=== PATIENT | female | born 1940 ===

== ENCOUNTER 2017-12-05 07:47 | Inpatient (IN) | payer MEDICARE, OTHER ==
[2017-12-05] MEDS ORDERED: Norepinephrine 8 MG/0.9% NS 250 ML ONE ×2 (08:08→13:18)
[2017-12-05] MEDS ORDERED: Fentanyl 100 MCG/2 ML VIAL ONE (08:13)
[2017-12-05] MEDS ORDERED: Midazolam HCl 2 mg/2 ml Vial ONE ×2 (08:13→08:38)
[2017-12-05 08:31] LABS: Actual Bicarbonate (HCO3a) 17.3 mEq/L (22-28); Analyzer IN Cardio ER; Base Excess (BEa) -13.1 mEq/L (-2.0 to +3.0); Calcium, Ionized 1.08 mmol/L (1.12-1.30); Carboxyhemoglobin (COHb) 0.3 gm% (0.0-3.0); Hemoglobin (Hb) 11.8 g/dL (12.0-16.0); O2 Tension (PaO2) 75.9 mmHg (> 70.0); Potassium - ABG Lab 3.63 mmol/L (3.70-5.30)
[2017-12-05 08:32] LABS: CO2 Tension 61.4 mmHg (35.0-45.0); Puncture Site LRA; pH, Arterial 7.07 (7.35-7.45)
[2017-12-05 08:33] LABS: Peep/CPAP 7.5 cmH2O
[2017-12-05 08:34] LABS: Mean Corpuscular HGB CONC 30.7 g/dL (32.0-36.0); Mean Corpuscular Volume 97.9 fL (78.0-98.0); Mean Platelet Volume 7.3 fL (7.4-10.4); Platelet Count 367 thou/uL (130-400); RBC Distribution Width 13.9 % (11.5-14.5); Red Blood Cell (RBC) Count 4.31 mill/uL (4.20-5.40); White Blood Cell (WBC) Count 33.6 thou/uL (4.8-10.8)
[2017-12-05 08:38] LABS: INR-International Normal Ratio 1.3; Prothrombin Time 16.7 SEC (12.0-14.7)
[2017-12-05 08:39] LABS: ALT (SGPT) 297 U/L (8-55); AST (SGOT) 393 U/L (5-34); Albumin 3.6 g/dL (3.4-4.8); Alkaline Phosphatase 169 U/L (40-150); Anion Gap 22 mmol/L (10-20); BUN (Urea Nitrogen) 22 mg/dL (9.8-20.1); Bilirubin, Total 0.6 mg/dL (0.2-1.2); Calc. Creatinine Clearance 0 mL/min (70-130); Calcium 9.3 mg/dL (7.8-10.44); Carbon Dioxide 20 mmol/L (23-31); Chloride 99 mmol/L (98-107); Estimated GFR-MDRD 50; Globulin 3.3 g/dL (2.4-3.5); Glucose 324 mg/dL (83-110); Lipase 28 U/L (8-78); PTT 39.8 SEC (22.9-36.1); Potassium 3.9 mmol/L (3.5-5.1); Protein, Total 6.9 g/dL (6.0-8.3); Sodium 137 mmol/L (136-145)
[2017-12-05] MEDS ORDERED: Fentanyl 20 mcg/ml (100 ml CADD) IV PRN (08:40)
[2017-12-05 08:51] LABS: Band 24 % (5-11); Lymphocytes 13 % (21-51); MDiff Complete? YES; Monocytes 4 % (0-10); Neutrophil 58 % (42-75)
[2017-12-05 08:54] LABS: Troponin I 2.586 ng/mL (< 0.028)
[2017-12-05] MEDS ORDERED: Sodium Bicarb 50 MEQ/50 ML Abboject 8.4% SYRINGE ONE ×2 (09:00→14:33)
[2017-12-05] MEDS ORDERED: EPINEPHrine 1 MG/10 ML Abboject SYRINGE ONE ×2 (09:00→14:33)
[2017-12-05 09:15] LABS: Actual Bicarbonate (HCO3a) 19.4 mEq/L (22-28); Analyzer IN Cardio ER; Base Excess (BEa) -5.8 mEq/L (-2.0 to +3.0); CO2 Tension 37.2 mmHg (35.0-45.0); Calcium, Ionized 1.05 mmol/L (1.12-1.30); Carboxyhemoglobin (COHb) 0.3 gm% (0.0-3.0); Hemoglobin (Hb) 12.3 g/dL (12.0-16.0); O2 Tension (PaO2) 76.9 mmHg (> 70.0); Potassium - ABG Lab 3.28 mmol/L (3.70-5.30); pH, Arterial 7.34 (7.35-7.45)
[2017-12-05 09:16] LABS: Puncture Site RBA
[2017-12-05] MEDS ORDERED: Enoxaparin Sodium 30 MG/0.3 ML SYRINGE ONE (09:29)
[2017-12-05] MEDS ORDERED: Enoxaparin Sodium 80 MG/0.8 ML SYRINGE ONE (09:29)
[2017-12-05 09:30] LABS: D-Dimer Test Greater than 20.00 *mcg/mL (0.27-0.43)
[2017-12-05] MEDS ORDERED: Piperacillin/Tazobactam 4.5 GM VIAL ONE (09:30)
--- NOTE | 2017-12-05 09:44 | RAD ---
CHEST 1 VIEW: Date: 12/05/17 HISTORY: CPR. COMPARISON: None. FINDINGS: There is a right mainstem intubation with endotracheal tube tip in right mainstem bronchus approximat presley 1.5 cm. Recommend retracting approximately 4.0 cm. Heart size is enlarged. There is perihilar and peripheral interstitial edema. Enteric tube is in place with tip below diaphragm, though out of fiel d of view. IMPRESSION: 1. Right mainstem bronchus intubation. 2. Cardiomegaly with interstitial and alveolar edema. This may be sequelae of cardiogenic edema and a combination of CPR. Dr. Salinas notified of findings via telephone at 0828 hours. CODE CR. POS: [facility]
--- NOTE | 2017-12-05 10:14 | RAD ---
CHEST 1 VIEW: Date: 12/05/17 HISTORY: Post central line placement. COMPARISON: Prior study same date. FINDINGS: The endotracheal tube tip has been retracted approximately 1.0 cm from the saida. A new central veno us catheter is in place with tip at the mid to lower SVC. Moderate edema. No pneumothorax. Enteric tube tip below diaphragm, out of field of view. IMPRESSION: 1. Interval retraction of the endotracheal tube with tip 1.0 cm above the saida. 2. Similar edema. 3. Central venous catheter tip in good position. POS: [facility]
[2017-12-05 10:26] LABS: Bilirubin Negative (Negative); Blood, Urine Negative (Negative); Clarity CLOUDY (Clear); Glucose, Urine (Dipstick) Negative (Negative); Leukocyte Negative (Negative); Nitrite Negative (Negative); Protein, Urine (Dipstick) Negative (Neg-Trace); Urobilinogen 0.2 mg/dL (0.2-1.0)
[2017-12-05] MEDS ORDERED: RENALLY ADJUST ABX IVPB PRN (10:31)
[2017-12-05] MEDS ORDERED: Nitroglycerin 0.4 MG TAB (25 Tab Bottle) SL PRN (10:32)
[2017-12-05] MEDS ORDERED: Bisacodyl 5 MG TAB PO PRN (10:32)
[2017-12-05] MEDS ORDERED: Acetaminophen 650 MG Suppository PR PRN (10:32)
[2017-12-05] MEDS ORDERED: Dextrose 5% in Water 1,000 ML IV PRN (10:38)
[2017-12-05] MEDS ORDERED: Dextrose 50% Abboject 50 ML SYRINGE SLOW IVP PRN (10:38)
--- NOTE | 2017-12-05 11:29 | HP ---
PRIMARY CARE PROVIDER: Dr. Kameron Franklin. CHIEF COMPLAINT: Chest pain. HISTORY OF PRESENT ILLNESS: Ms. Pereira is a pleasant 77-year-old lady who was seen at [facility] following transfer from [facility] in [place]. The patient is currently intubated, but she is awake, able to answer questions by nodding or shaking her head. Collateral history was obtained from review of medical records as well as discussion with the emergency room physician and was confirmed with the patient by asking her questions. She has a history of coronary artery disease and sees Dr. Gray for the same. She has had on and of f chest pressure since yesterday afternoon. She took some nitroglycerin at home, with improvement of the chest pain. I could not get further characterization of chest pain from the patient. She did n ot have any shortness of breath, fevers, sweats, chills, nausea or vomiting. She was concerned about her heart and therefore presented to the emergency room at [place]. She denies any current shortness of breath. She does report pain across her chest. She denies any b ack pain. She has no other complaints. REVIEW OF SYSTEMS: All other systems were reviewed and found to be negative. PAST MEDICAL HISTORY: Significant for congestive heart failure, anemia, arthritis, coronary artery d isease, celiac sprue, diabetes mellitus, hypertension, Guillain-[place] syndrome, dyslipidemia, lumbar radiculopathy, morbid obesity. PAST SURGICAL HISTORY: Significant for section, colonoscopy, and hysterectomy. FAMILY HISTORY: Significant for brain cancer in her father. SOCIAL HISTORY: The patient denies tobacco use, alcohol use or recreational drug use. ALLERGIES: No known drug allergies. CURRENT MEDICATIONS: Include alpha lipoic acid 300 mg daily, aspirin 325 mg daily, Lipitor 80 mg eric ly, biotin 2500 mcg daily, bumetanide 2 mg daily, calcium carbonate/vitamin D2 500/200 one tablet 2 t imes a day, celecoxib 200 mg daily, cinnamon bark 500 mg capsule daily, Plavix 75 mg daily, Coenzyme Q10 30 mg daily, cranberry/ascorbic acid 1 tablet 3 times a day, vitamin B12 500 mcg daily, fish oil 1 capsule 2 times a day, ezetimibe 10 mg daily, fluoxetine 20 mg every other day, lisinopril 2.5 mg d aily, Lopressor 25 mg 2 times a day, multivitamins 1 tablet daily, Nitro spray p.r.n., Nystatin topic ally 2 times a day, fish oil/omega 3 fatty acids 2 grams daily, timolol eyedrops, and tramadol p.r.n. PHYSICAL EXAMINATION: GENERAL: Ms. Pereira is awake and alert, not in acute distress. She is obese. VITAL SIGNS: Blood pressure is 93/50, pulse 80, respiratory rate 20, and oxygen saturation 97% on ve ntilator. Temperature is 99.1 degrees Fahrenheit. EYES: No scleral icterus. No conjunctival pallor. ENT: Endotracheal tube present. NECK: Nontender, trachea is midline, no lymphadenopathy. RESPIRATORY: Accessory muscles of breathing are not active. Chest wall movements are symmetric bila terally. Lungs are clear to auscultation without wheeze, rhonchi or crepitations. CARDIOVASCULAR: S1 and S2 are heard, regular. Peripheral pulses palpable. No carotid bruit, no per icardial rub. She has a central line. ABDOMEN: Soft, nontender, bowel sounds are heard, no hepatomegaly, no splenomegaly. NEUROLOGIC: Full neurologic examination was not possible, because of patient's intubated status. Th ere is no facial droop. Pupils are equal and reactive to light. She is able to move all 4 extremiti es. Deep tendon reflexes are 2+, plantar reflexes downgoing bilaterally. MUSCULOSKELETAL: Power is 5/5 in all 4 extremities. LYMPHATIC: No cervical lymphadenopathy. SKIN: No rashes or subcutaneous nodules. PSYCHIATRIC: Normal mood, normal affect, patient appears to be oriented to person, unable to assess orientation to place or time. LABORATORY DATA AND IMAGING: Ms. Pereira's labs and investigations were reviewed. I reviewed he r chest x-ray, which does not show any pulmonary infiltrates. I also reviewed her electrocardiogram, which shows normal sinus rhythm, no ST changes to suggest an acute coronary syndrome. She has leuko cytosis with 33,600 white cells, of which 58% are neutrophils and 24% are band neutrophils, normal he moglobin, normal platelet count, INR 1.3, D-dimer greater than 20, arterial blood gases showing pH 7. 07, pCO2 61.4 and pO2 75.9, normal sodium, normal potassium, decreased carbon dioxide of 20, elevated lactic acid level of 10.5, normal total bilirubin, elevated AST of 393, elevated ALT of 297, elevate d alkaline phosphatase of 169, elevated troponin I of 2.586, elevated BNP of 712 and normal lipase. ASSESSMENT AND PLAN: Ms. Pereira is a pleasant 77-year-old lady who was seen at [facility] on 12/05/2017. She initially presented to [facility] emergency room at [facility] complaining of chest pain. There, she was diagnosed with non-ST elevation myocardial infarction. She was subsequently transferred to the emergency room at [place]. On the way to [facility], she reportedly became asystolic and had to have CPR performed for 10 minutes with return of spontaneous circulation. She became hypoxic after reaching the emergency room at [facility]. She was also hypotensive. She is receiving vasopressors and is currently intubated. Her problem list includes: 1. Non-ST elevation myocardial infarction: She has received a dose of Lovenox, which I will continu e. I will also continue her aspirin, Plavix, beta [place] and JOSEF inhibitor. I will consult Cardiol ogy Service for opinion and help with further management. 2. Acute hypercapnic respiratory failure: The patient is currently intubated and mechanically venti lated. She will be admitted to CCU for further management. Pulmonology Service is being consulted f or opinion and help with further management. 3. Leukocytosis: Etiology is unclear. We will check urine studies to rule out any urinary tract in fection. Given abnormal LFTs, biliary infection is a possibility as well. We will start her on broa d spectrum antibiotics and await cultures. 4. Abnormal liver function tests: We will check abdominal ultrasound. We will recheck her LFTs as well. 5. Diabetes mellitus type 2: We will start the patient on Accu-Cheks and insulin sliding scale. 6. Hypertension: The patient is actually hypotensive currently, receiving Levophed infusion to main tain her blood pressure. 7. Dyslipidemia: We will continue her statin. Many thanks for allowing me to participate in the patient's care. Please feel free to contact me wit h any questions or concerns.
[2017-12-05 11:46] VITALS: BMI 43.8
--- NOTE | 2017-12-05 11:46 | CON ---
DATE OF CONSULTATION: 12/05/2017 REASON FOR CONSULTATION: Cardiac arrest. HISTORY OF PRESENT ILLNESS: Ms. Melida Pereira is a 77-year-old woman. She has a history of sev ere coronary artery disease which was felt to be an inoperable many years ago. She has been treated medically for several years and has been able to have her symptoms controlled. The patient came to [facility] emergency room at [facility] having chest pain. The decision was made to transfer her here. En route, the patient had a cardiac arrest. The patient has undergone CPR, is now intubated and on the ventilator. The patient has been sedated, but is not responsive currently. Past medical history; she did undergo cardiac catheterization in 2010 in March. She was found to h ave severe 3-vessel coronary disease with calcification. Ejection fraction was 40%. Surgery saw the patient and at that time thought to be a prohibitive risk for surgery, especially in view of her obe sity and inactivity. Unfortunately, her activity levels have not improved over the last nearly 8 yea rs. She is predominantly in a scooter. The patient has been having some symptoms of chest pain and went to the emergency room as outlined above today and was transferred here as mentioned. PAST MEDICAL HISTORY: 1. Coronary artery disease, inoperable. 2. Severe morbid obesity. 3. Limited mobility related to morbid obesity, primarily as well as some pain in her joints. 4. History of hypertension. 5. History of some congestive heart failure with ejection fraction of 35%. MEDICATIONS: 1. Aspirin. 2. Lisinopril. 3. Lipitor 80 mg a day. 4. Lisinopril 2.5 mg a day. 5. Bumex. 6. Plavix 75 mg a day. ALLERGIES: None known. SOCIAL HISTORY: She has an extremely supportive who was helping her in the office visits paul ry time that I can recall. SOCIAL HISTORY: No tobacco that I know of. No alcohol. PHYSICAL EXAMINATION: GENERAL: This is currently unresponsive, elderly woman, very obese. She is intubated on the ventila tor. VITAL SIGNS: Her blood pressure is just over 100 systolic, but she is on intravenous pressors. HEENT: Her eyes are closed. NECK: Neck veins are difficult to assess due to her obesity. LUNGS: Clear anteriorly and laterally. CARDIAC: Normal S1, normal S2. There is no murmur, rub or gallop, but heart sounds are very distant due to obesity. ABDOMEN: Obese, nontender, no hepatosplenomegaly. EXTREMITIES: Warm, dry, no clubbing, cyanosis or edema. I do not feel pedal pulses. PERTINENT LABORATORY AND X-RAY FINDINGS: The arterial blood gas; initially there was a pH of 7.07 fo llowed by 7.34, pCO2 was 61.4. Most recent pO2 76.9. The creatinine is 1.07. Troponin 2.586. EKG initially showed nonspecific intraventricular conduction delay, but now she has a left bundle bra nch block. Most recent LDL cholesterol was 68 here at this institution. HDL 50. Chest x-ray shows pulmonary edema. The initial chest x-ray showed the ET tube in the right main stem bronchus, there is calcification of the aorta at the aortic arch. ASSESSMENT: 1. Severe inoperable 3-vessel coronary disease. 2. Non-ST elevation myocardial infarction which has progressed to left bundle branch block. 3. Morbid obesity. 4. Pulmonary edema. PLAN: 1. She will receive a dose of enoxaparin. 2. She is intubated on ventilator. 3. The nurse tells me that she strongly said she did not want any other interventions done. She did not want bypass surgery done, although actually she had been turned down for bypass previously. The prognosis appears poor. I agree with intravenous pressors. Need to clarify code status with the brian minaya and it would seem reasonable to not make the patient a full code if she does not have a proble m that could be fixed operatively. I will be glad to follow with you. No indication to go to the ammunition assembly i laborer urgently, as mentioned she hunter s inoperable coronary disease which is calcified. Amazingly, the patient has been able to survive [facility] incident up until recently with her severe coronary artery disease. Prognosis at this point; h owever, looks very poor. We will follow with you.
[2017-12-05 12:07] LABS: Troponin I 18.079 ng/mL (< 0.028)
[2017-12-05] MEDS: Sodium Bicarbonate 150 MEQ in Dextrose 5% in Water 1,000 ML IV SCH ×2 (12:32→20:36)
[2017-12-05 13:36] LABS: Lactic Acid 3.3 mmol/L (0.5-2.2)
[2017-12-05] MEDS ORDERED: Vancomycin HCl 1 GM in Premix Bag 1 BAG IVPB SCH (14:00)
[2017-12-05] MEDS ORDERED: DC Sedation Protocol FS ONE (14:42)
[2017-12-05 15:24] LABS: Troponin I 39.458 ng/mL (< 0.028)
[2017-12-05] MEDS ORDERED: Furosemide 20 MG/2 ML VIAL SLOW IVP SCH (15:30)
--- NOTE | 2017-12-05 16:15 | ULT ---
RIGHT UPPER QUADRANT ULTRASOUND: 12/05/17 INDICATION: Abnormal LFTs. FINDINGS: There is a large stone within the gallbladder with gallbladder wall thickening and pericholecystic fl uid but no report of a sonographic Garza's sign. Common bile duct is upper limits of normal measurin g 5.8 mm. The visualized pancreas is unremarkable. No focal hepatic lesion is evident. The right kidn ey measured 9.7 cm in length. IMPRESSION: Cholelithiasis with gallbladder wall thickening and pericholecystic fluid is highly suspicious for ac phoebe calculus cholecystitis. There is no report of sonographic Garza's sign. If findings on clinical exam are equivocal, HIDA scan may be helpful to evaluate for cystic duct obstruction. POS: [facility]
[2017-12-05] MEDS: HumaLOG 300 UNITS/3 ML VIAL SC PRN ×2 (17:01→20:53)
[2017-12-05] MEDS: Piperacillin/Tazobactam 4.5 GM in Sodium Chloride 0.9% 100 ML IVPB SCH (17:05)
[2017-12-05] MEDS: Norepinephrine 8 MG/250 ML BAG IVPB PRN ×2 (18:19→23:03)
[2017-12-05] MEDS ORDERED: Enoxaparin Sodium 120 MG/0.8 ML SYRINGE SC SCH (21:00)
[2017-12-05] MEDS ORDERED: Atorvastatin Calcium 40 MG TAB PO SCH ×2 (21:00)
[2017-12-05] MEDS ORDERED: Metoprolol Tartrate 25 MG TAB PO SCH (21:00)
[2017-12-06] MEDS: Piperacillin/Tazobactam 4.5 GM in Sodium Chloride 0.9% 100 ML IVPB SCH ×3 (01:21→19:14)
[2017-12-06] MEDS: Norepinephrine 8 MG/250 ML BAG IVPB PRN ×3 (03:10→13:04)
[2017-12-06 04:27] LABS: #Basophils 0.1 thou/uL (0.0-0.2); #Lymphocytes 2.4 thou/uL (1.20-3.40); #Monocytes 1.6 thou/uL (0.11-0.59); %Basophils 0.4 % (0.0-1.0); %Eosinophils 0.1 % (0.0-10.0); %Lymphocytes 14.9 % (21.0-51.0); %Neutrophils 74.7 % (42.0-75.0); Hemoglobin 11.8 g/dL (12.0-16.0); Mean Corpuscular Hemoglobin 30.4 pg (27.0-31.0); Mean Platelet Volume 7.2 fL (7.4-10.4); Platelet Count 310 thou/uL (130-400); RBC Distribution Width 14.1 % (11.5-14.5); Red Blood Cell (RBC) Count 3.87 mill/uL (4.20-5.40)
[2017-12-06 04:36] LABS: ALT (SGPT) 223 U/L (8-55); AST (SGOT) 246 U/L (5-34); Albumin 3.2 g/dL (3.4-4.8); Alkaline Phosphatase 101 U/L (40-150); Anion Gap 14 mmol/L (10-20); BUN (Urea Nitrogen) 21 mg/dL (9.8-20.1); Bilirubin, Total 0.7 mg/dL (0.2-1.2); Calc. Creatinine Clearance 95 mL/min (70-130); Calcium 8.3 mg/dL (7.8-10.44); Carbon Dioxide 31 mmol/L (23-31); Cardiac Risk 2.9 (Less than 4.5); Chloride 99 mmol/L (98-107); Cholesterol 106 mg/dl (< 200 Desired); Estimated GFR-MDRD 61; Globulin 2.5 g/dL (2.4-3.5); Glucose 244 mg/dL (83-110); HDL Cholesterol 37 mg/dL (>60 Neg Risk); LDL Cholesterol, Calculated 46 mg/dL; Protein, Total 5.7 g/dL (6.0-8.3); Sodium 141 mmol/L (136-145); Triglycerides 116 mg/dL (Less than 150)
[2017-12-06] MEDS: HumaLOG 300 UNITS/3 ML VIAL SC PRN ×2 (05:55→13:16)
--- NOTE | 2017-12-06 08:36 | CON ---
DATE OF CONSULTATION: 12/05/2017 HISTORY OF PRESENT ILLNESS: Melida Pereira is a 77-year-old female, who was transferred from [facility] with ongoing chest pain and shortness of breath. Apparently, on the way to the hospital, she became apparently had some kind of a cardiac arrest appar ently for 10 minutes. Heart rate was brought back bradycardia asystole. She was not ventilated. Ap parently when she came to the ER, the ER physician said that CPR in progress. Because her sats were low, x-ray showed congestive heart failure. Patient was intubated because of low hypoxemia. Now in the ICU, she is awake, alert, responsive. She wants endotracheal tube out. Sedation was withheld. She is nonsmoker, no alcohol abuse. She sees a Dr. Franklin in [place]. PAST MEDICAL HISTORY: Coronary artery disease. She is not a candidate for any surgery because of ex tensive atherosclerosis. CHF, arthritis, diabetes, hypertension, history of previous Guillain-[place], obesity. She normally seeks care at [facility]. In fact, she was in [place] not longer for 3 days. PAST SURGICAL HISTORY: . MEDICATIONS: From home includes several different eyedrops, metoprolol 25 mg b.i.d., Zestril 2.5, Pr ozac 20, Zetia 10, Plavix 75, Bumex 2 mg, Celebrex 200, Lipitor 80, aspirin. ALLERGIES: IODINE. PHYSICAL EXAMINATION: GENERAL: She is awake, alert, responsive. VITAL SIGNS: Pulse is 87, blood pressure is 130/80, respiration rate 18, and sats are 99%. CHEST: Decreased breath sounds, bilateral crackles. CARDIAC: Normal S1 and S2. No gallops. ABDOMEN: Soft. No masses. LABORATORY DATA: PO2 of 76, pCO2 of 37, pH 7.34 on the vent. Troponin is elevated at 18. X-ray fernanda ws CHF. Her white count is 32,000. IMPRESSION: 1. Respiratory failure, status post presumed cardiac arrest. 2. Chronic disease, not a candidate for surgical intervention. 3. Obesity. 4. Diabetes. She is on broad spectrum antibiotics which I will continue. I doubt this is pneumonia, it appears to be CHF, probably stress related leukocytosis, though she does have some bandemia. Renal function is normal. Lactic acid was 10 and is now 3.3, probably from hyperperfusion, BNP 712. PLAN: Stop sedation, wean and extubate as tolerated. Continue aggressive cardiac care. Diuretics, etc. We will follow. Forty-five minutes critical care time.
--- NOTE | 2017-12-06 08:42 | RAD ---
CHEST 1 VIEW: HISTORY: Dyspnea. Followup. COMPARISON: 12/05/17. FINDINGS: Cardiac silhouette is magnified and enlarged. Pulmonary vasculature remains engorged with patchy are as of parenchymal infiltrate similar in appearance to the prior exam allowing for differences in radi ographic technique. Mediastinum is midline with aortic calcification. Endotracheal catheter and marleny ogastric tube no longer visible. Right subclavian central venous catheter remains in place. Old rig ht rib fractures. IMPRESSION: 1. Interval removal of the endotracheal catheter and nasogastric tube. 2. Pulmonary vascular congestion and other findings are otherwise stable. POS: [facility]
[2017-12-06] MEDS ORDERED: Enoxaparin Sodium 120 MG/0.8 ML SYRINGE SC SCH (08:44)
[2017-12-06] MEDS ORDERED: Potassium Chloride 40 MEQ in Premix Bag 1 BAG IVPB SCH (08:45)
[2017-12-06] MEDS ORDERED: Aspirin 300 MG Suppository PR SCH (09:00)
[2017-12-06] MEDS ORDERED: Lisinopril 2.5 MG TAB PO SCH (09:00)
--- NOTE | 2017-12-06 09:11 | PRG ---
DATE OF SERVICE: 12/06/2017 Ms. Pereira is extubated, awake and alert, feels much better today. She is still on high dose intravenous pressors. PHYSICAL EXAMINATION: VITAL SIGNS: Her blood pressure is in the 90s systolic. GENERAL: She is awake and alert. LUNGS: Clear. CARDIAC: Normal S1, normal S2, but there are very distant heart sounds due to obesity. ABDOMEN: Very obese, nontender to light palpation. EXTREMITIES: Warm and dry. PERTINENT LABORATORY: Her troponin peak was 39.458, the QRS on EKG no longer looks wide. ASSESSMENT: 1. Status post [id number] myocardial infarction. 2. Ultrasound of the gallbladder reveals that she likely has cholecystitis. She does have gallstone . 3. Non-ST elevation infarction, demand ischemia with severe underlying coronary disease. 4. Hypotension. PLAN: 1. Continue pressors. 2. We will have to hold JOSEF inhibitors and beta blockers presently. 3. Reduce enoxaparin dose for DVT prophylaxis dose. 4. Hypokalemia, replete potassium. Potassium was 3. 5. Echocardiogram. 6. Prognosis remains guarded. Continue antibiotics for now. At some point, surgical consultation w ould be appropriate, although currently likely too ill to proceed to surgery today.
[2017-12-06] MEDS: Aspirin 81 mg Enteric Coated Tablet PO SCH (09:29)
[2017-12-06] MEDS: Clopidogrel Bisulfate 75 MG TAB PO SCH (09:30)
[2017-12-06] MEDS: Enoxaparin Sodium 40 MG/0.4 ML SYRINGE SC SCH ×2 (09:31→20:53)
--- NOTE | 2017-12-06 09:39 | PRG ---
DATE OF SERVICE: 12/06/2017 The patient remains in the ICU, though she is much better, awake, alert, responsive. PHYSICAL EXAMINATION: VITAL SIGNS: Pulse is 90, blood pressure 94/42. She is on Levophed. Sats 90%, respiration 21. I's & O's have been 3210 in, 1268 out. Denied any pain or discomfort. CHEST: Chest reveals decreased breath sounds, minimal crackles. CARDIAC: Normal S1, S2. ABDOMEN: Soft, no masses. LABORATORY: Potassium is 3. Glucose 244. White count 15,000. Troponin was markedly elevated. IMPRESSION: 1. Status post myocardial infarction. 2. Status post cardiac arrest. 3. Abnormal liver function consistent with acute gallbladder disease. PLAN: No reason to suspect sepsis. I have discontinued the vancomycin. Continue Zosyn for presumed acute gallbladder infection status. ____ on board. PT and nutrition. I will follow. One-half hour critical care time.
[2017-12-06] MEDS: Sodium Bicarbonate 150 MEQ in Dextrose 5% in Water 1,000 ML IV SCH (09:50)
[2017-12-06] MEDS ORDERED: Sodium Chloride 0.9% 1,000 ML IV SCH (11:15)
[2017-12-06] MEDS: Sodium Chloride 0.9% 1,000 ML IV SCH ×2 (16:30→21:02)
--- NOTE | 2017-12-06 18:45 | PDOC.PN ---
- Subjective Encounter Start Date: 12/06/17 Encounter Start Time: 10:00 Pt seen for followup re: NSTEMI. Denies chest pain, abdo pain. Feels better. - Objective MAR Reviewed: Yes Vital Signs & Weight: Vital Signs (12 hours) Temp Pulse Pulse BP BP Pulse Ox Pulse Ox 12/06/17 16:00 98.5 F 12/06/17 12:22 99 108 H 112/69 87/55 L 97 12/06/17 12:00 98.4 F 12/06/17 08:00 99.5 F 83 L Pulse Ox 12/06/17 16:00 12/06/17 12:22 97 12/06/17 12:00 12/06/17 08:00 Weight Weight 255 lb 2.961 oz Most Recent Monitor Data Heart Rate from ECG 97 NIBP 118/66 NIBP BP-Mean 83 Respiration from ECG 29 SpO2 94 I&O: 12/05/17 12/06/17 12/07/17 06:59 06:59 06:59 Intake Total 3210 682 Output Total 1260 360 Balance 1950 322 Result Diagrams: 12/07/17 04:20 12/07/17 04:20 Additional Labs: Accuchecks 12/06/17 12/05/17 13:13 20:51 POC Glucose 178 H 257 H EKG Reviewed by me: Yes (Tele: NSR) Phys Exam - Physical Examination Morbid obesity HEENT: moist MMs, sclera anicteric, oral pharynx no lesions, 2+ tonsils Neck: no nodes, no JVD, supple, full ROM Respiratory: no wheezing, no rales, no rhonchi, clear to auscultation bilateral Cardiovascular: RRR, no rub S1, S2 Gastrointestinal: soft, non-tender, no distention, positive bowel sounds Neurological: moves all 4 limbs Psychiatric: normal affect, A&O x 3 Dx/Plan (1) NSTEMI (non-ST elevated myocardial infarction) Code(s): I21.4 - NON-ST ELEVATION (NSTEMI) MYOCARDIAL INFARCTION Status: Acute Comment: continue Lovenox. Pt was extubated yesterday, still on pressors. (2) Cholecystitis Code(s): K81.9 - CHOLECYSTITIS, UNSPECIFIED Status: Acute Comment: suspected , based on abdo US. Clinically, Garza's sign is negative. Will continue IV Zosyn and seek help from surgical service. (3) DM2 (diabetes mellitus, type 2) Status: Chronic Comment: continue accuchecks and insulin sliding scale. (4) HTN (hypertension) Code(s): I10 - ESSENTIAL (PRIMARY) HYPERTENSION Status: Chronic Comment: Pt on pressors for hypotension. (5) Dyslipidemia Code(s): E78.5 - HYPERLIPIDEMIA, UNSPECIFIED Status: Chronic Comment: continue statin - Plan * . Review of Systems - Review of Systems Constitutional: negative: fever, chills, sweats, weakness, malaise Respiratory: negative: Cough, Shortness of Breath, SOB with Excertion, Pleuritic Pain, Wheezing Cardiovascular: negative: chest pain, palpitations, orthopnea, paroxysmal nocturnal dyspnea, edema, light headedness Gastrointestinal: negative: Nausea, Vomiting, Abdominal Pain, Diarrhea, Constipation, Melena, Hematochezia Genitourinary: negative: Dysuria, Frequency, Incontinence, Hematuria, Retention Skin: negative: Rash, Lesions, Jeremiah, Bruising - Medications/Allergies Allergies/Adverse Reactions: Allergies Allergy/AdvReac Type Severity Reaction Status Date / Time Iodinated Contrast- Oral and Allergy Verified 12/05/17 11:20 IV Dye Medications: Current Medications Acetaminophen (Tylenol) 650 mg PO Q4H PRN PRN Reason: Headache/Fever/Mild Pain (1-3) Acetaminophen (Tylenol) 650 mg LA Q4H PRN PRN Reason: Headache/Fever/Mild Pain (1-3) Aspirin (Ecotrin) 81 mg PO DAILY [facility] Last Admin: 12/06/17 09:29 Dose: 81 mg Bisacodyl (Dulcolax) 10 mg PO DAILYPRN PRN PRN Reason: Constipation Clopidogrel Bisulfate (Plavix) 75 mg PO DAILY [facility] Last Admin: 12/06/17 09:30 Dose: 75 mg Dextrose/Water (Dextrose 50%) 25 gm SLOW IVP PRN PRN PRN Reason: Hypoglycemia Enoxaparin Sodium (Lovenox) 40 mg SC 0900,2100 [facility] Last Admin: 12/06/17 09:31 Dose: 40 mg Glucagon (Glucagon) 1 mg IM PRN PRN PRN Reason: Hypoglycemia Piperacillin Sod/Tazobactam (Sod 4.5 gm/ Sodium Chloride) 100 mls @ 200 mls/hr IVPB 0100,0900,1700 [facility] Last Admin: 12/06/17 09:13 Dose: 100 mls Dextrose/Water (D5w) 1,000 mls @ 0 mls/hr IV .Q0M PRN PRN Reason: Hypoglycemia Norepinephrine Bitartrate (Levophed) 250 mls @ 0 mls/hr IVPB INF PRN; Protocol PRN Reason: Blood Pressure Last Admin: 12/06/17 13:04 Dose: 250 mls Sodium Chloride (Normal Saline 0.9%) 1,000 mls @ 80 mls/hr IV .[id number] [facility] Insulin Human Lispro (Humalog) 0 units SC .MILD SLIDING SCALE PRN PRN Reason: Mild Correctional Scale Last Admin: 12/06/17 13:16 Dose: 2 unit Miscellaneous Medication (Pharmacy To Dose) 1 each IVPB PRN PRN PRN Reason: Pharmacy to dose Morphine Sulfate (Morphine) 2 mg SLOW IVP Q5MIN PRN PRN Reason: Chest Pain Nitroglycerin (Nitrostat) 0.4 mg SL Q5MIN PRN PRN Reason: Chest Pain Potassium Bicarb/Potassium Chloride (K-Lyte Cl) 25 meq PO BID [facility] Stop: 12/09/17 21:01
[2017-12-06] MEDS ORDERED: Pot Chloride/Pot Bicarb/Cit Ac 25 mEq Effervescent Tablet PO SCH (21:00)
--- NOTE | 2017-12-06 21:33 | CON ---
DATE OF CONSULTATION: 12/06/2017 CONSULTING PHYSICIAN: Dr. Franco. REASON FOR CONSULTATION: Cholelithiasis, possible cholecystitis. HISTORY OF PRESENT ILLNESS: The patient is a 77-year-old morbidly obese white female who was admitte d to the hospital yesterday following a cardiac arrest. She was intubated at the time of admission, but she is extubated currently. At the time that she was admitted, her initial testing revealed elev ated liver function tests. Her AST was elevated at 393 and today it is 246. Her ALT was elevated at 297 and today it is 223. She tells me that she has known for a number of years that she had cholelithiasis. She can be certai n when she learned or how she learned. She is also not certain why she never had her cholelithiasis addressed with surgery. She tells me that she never has any significant right upper quadrant discomf ort. She denies any currently. She is alert and very appropriate and interactive right now. Her gallbladder ultrasound was obtained did reveal potentially some pericholecystic fluid. There is some gallbladder wall thickening. Her cystic duct had a normal caliber at 5.8 mm. Her white blood c ell count when she was admitted yesterday was 33 and today it is 16. PAST MEDICAL HISTORY: 1. Notable for inoperable severe coronary artery disease. She was felt to be high risk for surgery and accordingly catheterization was not performed either. 2. Severe morbid obesity. 3. Limited mobility. 4. Hypertension. 5. Congestive heart failure with ejection fraction of 35%. CURRENT MEDICATIONS: Aspirin, lisinopril, Lipitor, Bumex and Plavix. ALLERGIES: No known drug allergies. PERSONAL AND SOCIAL HISTORY: She is . She denies tobacco use or alcohol use. PHYSICAL EXAMINATION: VITAL SIGNS: She is currently tachycardic with a heart rate between 100-105, blood pressure is withi n normal limits. She is currently on Levophed, but has been weaned. HEENT: Unremarkable. NECK: Supple. LUNGS: Clear to auscultation. CARDIAC: Regular rate and rhythm. ABDOMEN: Morbidly obese, but soft. There is no focal tenderness in any area in her abdomen. EXTREMITIES: Unremarkable. LABORATORY: As mentioned, her white blood cell count has dropped from 33 down to 16. Her hemoglobin is currently 11.8. Her chemistry profile reveals normal bilirubin, normal alkaline phosphatase and her AST and ALT are trending downwards. Her troponin yesterday afternoon was 39.5. ASSESSMENT: Patient with cholelithiasis. It is entirely possible that her elevated transaminases ar e related to congestive heart failure or to that compressions that she sustained during her cardiac a rrest. I doubt she has cholecystitis and suspected there is a fluid around her gallbladder is relate d to her heart failure instead. She is a prohibitive risk for surgery and her gallbladder should not be addressed unless it becomes an emergent problem, which it certainly was not. I discussed all thi s with the patient. I discussed with her symptoms that she would experience if she had significant c holecystitis. As I do not recommend any intervention, I will see her in the future as needed.
[2017-12-07] MEDS: Piperacillin/Tazobactam 4.5 GM in Sodium Chloride 0.9% 100 ML IVPB SCH ×2 (00:19→08:42)
[2017-12-07 04:35] LABS: #Lymphocytes 1.3 thou/uL (1.20-3.40); #Monocytes 0.7 thou/uL (0.11-0.59); #Neutrophils 5.8 thou/uL (1.40-6.50); %Basophils 0.4 % (0.0-1.0); %Eosinophils 0.3 % (0.0-10.0); %Lymphocytes 16.7 % (21.0-51.0); %Monocytes 8.7 % (0.0-10.0); %Neutrophils 73.9 % (42.0-75.0); Hemoglobin 9.9 g/dL (12.0-16.0); Mean Corpuscular HGB CONC 31.5 g/dL (32.0-36.0); Mean Corpuscular Hemoglobin 30.2 pg (27.0-31.0); Mean Corpuscular Volume 95.9 fL (78.0-98.0); Mean Platelet Volume 7.2 fL (7.4-10.4); Platelet Count 154 thou/uL (130-400); RBC Distribution Width 13.9 % (11.5-14.5); Red Blood Cell (RBC) Count 3.29 mill/uL (4.20-5.40); White Blood Cell (WBC) Count 7.8 thou/uL (4.8-10.8)
[2017-12-07 04:45] LABS: ALT (SGPT) 128 U/L (8-55); AST (SGOT) 113 U/L (5-34); Albumin 2.8 g/dL (3.4-4.8); Alkaline Phosphatase 82 U/L (40-150); Anion Gap 12 mmol/L (10-20); BUN (Urea Nitrogen) 15 mg/dL (9.8-20.1); Bilirubin, Total 0.9 mg/dL (0.2-1.2); Calc. Creatinine Clearance 111 mL/min (70-130); Calcium 8.2 mg/dL (7.8-10.44); Carbon Dioxide 33 mmol/L (23-31); Chloride 103 mmol/L (98-107); Estimated GFR-MDRD 74; Globulin 2.4 g/dL (2.4-3.5); Glucose 157 mg/dL (83-110); Potassium 3.3 mmol/L (3.5-5.1); Protein, Total 5.2 g/dL (6.0-8.3); Sodium 145 mmol/L (136-145)
[2017-12-07] MEDS ORDERED: Pot Chloride/Pot Bicarb/Cit Ac 25 mEq Effervescent Tablet PO SCH (08:25)
--- NOTE | 2017-12-07 08:38 | RAD ---
PORTABLE AP CHEST XRAY: DATE: 12/07/2017. History On a ventilator, followup evaluation. COMPARISON: . FINDINGS: Right subclavian central venous catheter is stable in position. Cardiac silhouette is enlarged. Pul monary vasculature does appear mildly increased. There is mild increase in perihilar interstitial de nsities. The linear parenchymal opacity at the right lung base does appear mildly improved. Althoug h the patient is rotated, there is blunting of the right lateral costophrenic angle which could be re lated to either atelectasis or small right pleural effusion. No other interval change. IMPRESSION: 1. Cardiomegaly. 2. Increased perihilar interstitial opacities which could be related to either an element of pulmona ry edema or infectious process. 3. Improvement in aeration at the right lung base, but there is now blunting of the right lateral co stophrenic angle, some of which is related to patient rotation and atelectasis, but a small right ple ural effusion is a possibility. POS: [facility]
[2017-12-07] MEDS: Clopidogrel Bisulfate 75 MG TAB PO SCH (08:43)
[2017-12-07] MEDS: Aspirin 81 mg Enteric Coated Tablet PO SCH (08:43)
--- NOTE | 2017-12-07 08:51 | PRG ---
DATE OF SERVICE: 12/07/2017 SUBJECTIVE: Ms. Pereira is more alert and awake today. PHYSICAL EXAMINATION: VITAL SIGNS: Her blood pressure 119/65 and pulse is 100 and sinus. LUNGS: Clear. CARDIAC: Normal S1 and normal S2. ABDOMEN: Soft, nontender. EXTREMITIES: There is no edema. ASSESSMENT: 1. Severe inoperable 3-vessel coronary artery disease. 2. Morbid obesity. 3. Status post cardiac arrest. 4. Gallstones. Dr. Miller did not think she has cholecystitis. 5. Increased liver tests, possibly due to hepatic congestion. PLAN: 1. Hep-Lock IV. 2. Replete potassium, which is low. 3. She is on aspirin and Plavix. 4. Resume statins this hospitalization. The patient had an echocardiogram done showing the ejection fraction is now 15%-20%. We will need to discuss with the patient whether she wishes to have defibrillator implantation. She has been on JOSEF inhibitors and beta blockers long-term. Unfortunately, regardless of therapy, prognosis is likely p oor.
[2017-12-07] MEDS: Potassium Chloride 20 MEQ in Premix Bag 1 BAG IVPB SCH ×2 (09:22→12:07)
[2017-12-07] MEDS: Enoxaparin Sodium 40 MG/0.4 ML SYRINGE SC SCH (09:24)
--- NOTE | 2017-12-07 11:47 | PRG ---
DATE OF SERVICE: 12/07/2017 SUBJECTIVE: This morning, is awake, alert, and responsive. X-ray still shows CHF. OBJECTIVE: VITAL SIGNS: Sats are 92%, blood pressure 129/67, pulse 94, O2 saturation 98%, respirations 21. I's and O's are 948 in and 1843 out. CHEST: Bilateral crackles. CARDIAC: Normal S1 and S2. No gallops. ABDOMEN: Soft. No masses. LABORATORY DATA: White count is 7000, H and H is 9 and 30, platelet count and electrolytes are danielle l. IMPRESSION: 1. Cholecystitis. 2. Cardiomyopathy. 3. Respiratory failure. 4. Status post cardiopulmonary arrest. PLAN: Pulmonary-coleman, she is improved. I may consider transfer to a monitor bed. Pulmonary to follow while in the ICU.
--- NOTE | 2017-12-07 12:56 | PQF ---
CLINICAL DOCUMENTATION IMPROVEMENT CLARIFICATION FORM: ICD-10 Updated PLEASE DO AN ADDENDUM TO THE PROGRESS NOTE WITH ANY DOCUMENTATION UPDATES OR ADDITIONS AND CARRY THROUGH TO DC SUMMARY. THANK YOU. DATE: 12/07/17 ATTN: Please exercise your independent, professional judgment in responding to the clarification form. Clinical indicators are provided on the bottom of this form for your review Please check appropriate box(s): [ ] Hypovolemic Shock [ ] Cardiogenic Shock [ ] Shock Unspecified [ ] Other diagnosis [ ] Unable to determine In addition, please specify: Present on Admission (POA): [ ] Yes [ ] No [ ] Unable to determine For continuity of documentation, please document condition throughout progress notes and discharge summary. Thank You. CLINICAL INDICATORS - SIGNS / SYMPTOMS / LABS ER RECORD: BP 70/44, PULSE 75 CARDIAC ARREST WITH ROSC H&P10/3: BP 93/50, PULSE 80 LACTIC ACID LEVEL OF 10.5 INITIALLY PRESENTED TO [facility] AT [place]. DX W/ NON-STEMI. ON WAY TO [facility] , PT REPORTEDLY BECAME ASYSTOLIC & HAD TO HAVE CPT PERFORMED FOR 10 MINUTES W/ RETURN OF SPONTANEOUS CIRCULATION. CARDIOLOGY PN 10: S/P CARDIAC ARREST INCREASED LIVER TESTS, POSSIBLY DUE TO HEPATIC CONGESTION ECHO EF IS NOW 15%-20% RISKS: H&P: HX SIGNIFICANT FOR CHF, CAD, DM, HTN, MORBID OBESITY NSTEMI. ACUTE HYPERCAPNIC RESPIRATORY FAILURE. TREATMENT: ORDER 12/05: RESP: VENT CONTINUOUS ORDER 12/05: LEVOPHED 8mg/ 0.9% NS PRN BP. MAP>65 CARDIOLOGY PN 12/06: CONTINUE PRESSORS. WILL HAVE TO HOLD JOSEF INHIBITORS & BETA BLOCKERS PRESENTLY - Thank you, Tracie (This form is maintained as a part of the permanent medical record) 2014 [employer]. All Rights Reserved Tracie Valdes RN, BSN [email or web address] Office: [phone] [facility]
[2017-12-07] MEDS: Potassium Chloride 10 MEQ TAB PO SCH (17:12)
--- NOTE | 2017-12-07 19:07 | PDOC.PN ---
- Subjective Encounter Start Date: 12/07/17 Encounter Start Time: 10:20 Pt seen for followup re: NSTEMI. feels better. No chect pain, no abdo pain. - Objective MAR Reviewed: Yes Vital Signs & Weight: Vital Signs (12 hours) Temp Pulse Pulse Pulse Resp BP BP 12/07/17 16:00 12/07/17 15:13 98.8 F 99 18 12/07/17 13:28 100 100 120/82 111/72 12/07/17 12:00 98.3 F 12/07/17 07:21 BP Pulse Ox Pulse Ox Pulse Ox 12/07/17 16:00 96 12/07/17 15:13 121/69 96 12/07/17 13:28 88 L 97 12/07/17 12:00 12/07/17 07:21 97 Weight Weight 255 lb 2.961 oz Most Recent Monitor Data Heart Rate from ECG 93 NIBP 96/40 NIBP BP-Mean 58 Respiration from ECG 24 SpO2 97 I&O: 12/06/17 12/07/17 12/08/17 06:59 06:59 06:59 Intake Total 3210 3233 1428 Output Total 1260 880 325 Balance 1950 2353 1103 Result Diagrams: 12/08/17 04:11 12/08/17 04:11 Additional Labs: Accuchecks 12/07/17 12/07/17 12/06/17 17:42 10:51 20:52 POC Glucose 148 H 142 H 162 H EKG Reviewed by me: Yes (Tele: NSR) Phys Exam - Physical Examination Morbid obesity HEENT: moist MMs, sclera anicteric, oral pharynx no lesions, 2+ tonsils Neck: no nodes, no JVD, supple, full ROM Respiratory: no wheezing, no rales, no rhonchi, clear to auscultation bilateral Cardiovascular: RRR, no rub S1, S2 Gastrointestinal: soft, non-tender, no distention, positive bowel sounds Neurological: moves all 4 limbs Psychiatric: normal affect, A&O x 3 Dx/Plan (1) NSTEMI (non-ST elevated myocardial infarction) Code(s): I21.4 - NON-ST ELEVATION (NSTEMI) MYOCARDIAL INFARCTION Status: Acute Comment: continue Lovenox. Pt was extubated yesterday, still on pressors. (2) Cholecystitis Code(s): K81.9 - CHOLECYSTITIS, UNSPECIFIED Status: Acute Comment: appreciate surgical service input. Will continue antibiotics for now. (3) DM2 (diabetes mellitus, type 2) Status: Chronic Comment: on accuchecks and insulin sliding scale. (4) HTN (hypertension) Code(s): I10 - ESSENTIAL (PRIMARY) HYPERTENSION Status: Chronic Comment: Pt off of pressors since yesterday (5) Dyslipidemia Code(s): E78.5 - HYPERLIPIDEMIA, UNSPECIFIED Status: Chronic Comment: continue statin (6) Cardiogenic shock Code(s): R57.0 - CARDIOGENIC SHOCK Status: Resolved Comment: present on admission, now resolved - Plan * . Review of Systems - Review of Systems Constitutional: negative: fever, chills, sweats, weakness, malaise Respiratory: negative: Cough, Shortness of Breath, SOB with Excertion, Pleuritic Pain, Wheezing Cardiovascular: negative: chest pain, palpitations, orthopnea, paroxysmal nocturnal dyspnea, edema, light headedness Gastrointestinal: negative: Nausea, Vomiting, Abdominal Pain, Diarrhea, Constipation, Melena, Hematochezia Skin: negative: Rash, Lesions, Jeremiah, Bruising Neurological: negative: Weakness, Numbness, Incoordination, Change in Speech, Confusion, Seizures - Medications/Allergies Allergies/Adverse Reactions: Allergies Allergy/AdvReac Type Severity Reaction Status Date / Time Iodinated Contrast- Oral and Allergy Verified 12/05/17 11:20 IV Dye Medications: Current Medications Acetaminophen (Tylenol) 650 mg PO Q4H PRN PRN Reason: Headache/Fever/Mild Pain (1-3) Acetaminophen (Tylenol) 650 mg [place] Q4H PRN PRN Reason: Headache/Fever/Mild Pain (1-3) Amoxicillin/Clavulanate Potassium (Augmentin) 500 mg PO Q12HR [facility] Stop: 12/12/17 21:01 Aspirin (Ecotrin) 81 mg PO DAILY [facility] Last Admin: 12/07/17 08:43 Dose: 81 mg Atorvastatin Calcium (Lipitor) 40 mg PO HS [facility] Bisacodyl (Dulcolax) 10 mg PO DAILYPRN PRN PRN Reason: Constipation Clopidogrel Bisulfate (Plavix) 75 mg PO DAILY [facility] Last Admin: 12/07/17 08:43 Dose: 75 mg Dextrose/Water (Dextrose 50%) 25 gm SLOW IVP PRN PRN PRN Reason: Hypoglycemia Enoxaparin Sodium (Lovenox) 40 mg SC 0900 [facility] Last Admin: 12/07/17 09:24 Dose: 40 mg Fluoxetine HCl (Prozac) 20 mg PO DAILY [facility] Glucagon (Glucagon) 1 mg IM PRN PRN PRN Reason: Hypoglycemia Dextrose/Water (D5w) 1,000 mls @ 0 mls/hr IV .Q0M PRN PRN Reason: Hypoglycemia Insulin Human Lispro (Humalog) 0 units SC .MILD SLIDING SCALE PRN PRN Reason: Mild Correctional Scale Last Admin: 12/06/17 13:16 Dose: 2 unit Miscellaneous Medication (Pharmacy To Dose) 1 each IVPB PRN PRN PRN Reason: Pharmacy to dose Mometasone Furoate/Formoterol Fumar (Dulera 100 Mcg/5 Mcg Inhaler) 2 puff INH BID-RT [facility] Morphine Sulfate (Morphine) 2 mg SLOW IVP Q5MIN PRN PRN Reason: Chest Pain Nitroglycerin (Nitrostat) 0.4 mg SL Q5MIN PRN PRN Reason: Chest Pain Potassium Chloride (Klor-Con 10) 10 meq PO BID-WM [facility] Stop: 12/09/17 19:00 Last Admin: 12/07/17 17:12 Dose: 10 meq
[2017-12-07] MEDS: Mometasone/Formoterol 120 PUFF INHALER INH SCH (19:59)
[2017-12-07] MEDS: Amoxicillin/Potassium Clav 500 MG TAB PO SCH (20:16)
[2017-12-08 04:44] LABS: #Eosinphils 0.1 thou/uL (0.0-0.7); #Lymphocytes 1.4 thou/uL (1.20-3.40); #Monocytes 0.6 thou/uL (0.11-0.59); %Basophils 0.2 % (0.0-1.0); %Eosinophils 0.9 % (0.0-10.0); %Monocytes 7.6 % (0.0-10.0); %Neutrophils 74.3 % (42.0-75.0); Hemoglobin 10.6 g/dL (12.0-16.0); Mean Corpuscular HGB CONC 30.9 g/dL (32.0-36.0); Mean Corpuscular Hemoglobin 30.3 pg (27.0-31.0); Mean Corpuscular Volume 98.2 fL (78.0-98.0); Mean Platelet Volume 7.9 fL (7.4-10.4); Platelet Count 174 thou/uL (130-400); RBC Distribution Width 13.9 % (11.5-14.5); White Blood Cell (WBC) Count 8.1 thou/uL (4.8-10.8)
[2017-12-08 04:55] LABS: ALT (SGPT) 93 U/L (8-55); AST (SGOT) 70 U/L (5-34); Albumin 2.9 g/dL (3.4-4.8); Alkaline Phosphatase 81 U/L (40-150); Anion Gap 13 mmol/L (10-20); BUN (Urea Nitrogen) 16 mg/dL (9.8-20.1); Bilirubin, Total 0.8 mg/dL (0.2-1.2); Calc. Creatinine Clearance 132 mL/min (70-130); Calcium 8.6 mg/dL (7.8-10.44); Carbon Dioxide 28 mmol/L (23-31); Chloride 105 mmol/L (98-107); Estimated GFR-MDRD 90; Globulin 2.7 g/dL (2.4-3.5); Glucose 150 mg/dL (83-110); Potassium 3.6 mmol/L (3.5-5.1); Protein, Total 5.6 g/dL (6.0-8.3); Sodium 142 mmol/L (136-145)
[2017-12-08] MEDS: Mometasone/Formoterol 120 PUFF INHALER INH SCH ×2 (08:52→19:39)
--- NOTE | 2017-12-08 08:56 | RAD ---
CHEST 1 VIEW: HISTORY: Dyspnea. Followup. COMPARISON: 12/07/2017. FINDINGS: Cardiac silhouette is magnified and enlarged. Pulmonary vasculature remains engorged with dense dru ateral perihilar infiltrate. Bibasilar infiltrates are less dense than on the prior study. Mediasti num is midline with aortic calcification. Right-sided central venous catheter remains in place. No evidence of pneumothorax. IMPRESSION: Persistent pulmonary edema. Slight interval improved aeration of the lung bases. POS: [facility]
[2017-12-08] MEDS ORDERED: FLUoxetine HCl 20 MG CAP PO SCH (09:00)
[2017-12-08] MEDS: Potassium Chloride 10 MEQ TAB PO SCH ×2 (09:13→16:58)
[2017-12-08] MEDS: Clopidogrel Bisulfate 75 MG TAB PO SCH (09:13)
[2017-12-08] MEDS: Amoxicillin/Potassium Clav 500 MG TAB PO SCH ×2 (09:14→20:44)
[2017-12-08] MEDS: Enoxaparin Sodium 40 MG/0.4 ML SYRINGE SC SCH (09:14)
[2017-12-08] MEDS: Aspirin 81 mg Enteric Coated Tablet PO SCH (09:14)
[2017-12-08] MEDS ORDERED: Furosemide 40 MG/4 ML VIAL SLOW IVP SCH (14:30)
--- NOTE | 2017-12-08 14:55 | PRG ---
DATE OF SERVICE: 12/08/2017 SUBJECTIVE: The patient is about the same, had no acute complaints. OBJECTIVE: VITAL SIGNS: Temperature is 98.4, pulse 101, respirations 16, O2 sat 95%. HEENT: Unremarkable. NECK: No JVD. LUNGS: Clear anteriorly. CARDIOVASCULAR: S1 and S2 regular. ABDOMEN: Soft, obese, nontender. EXTREMITIES: No edema. LABORATORY DATA: White blood cell count 8.1, hematocrit 34.3, platelet count 174,000. Sodium 142, p otassium 3.6, chloride 105, CO2 28, BUN 16, creatinine 0.6, glucose 150. ASSESSMENT: 1. Stable pulmonary status. 2. Cholecystitis. 3. Cardiomyopathy. 4. Status post respiratory failure. 5. Status post arrest. PLAN: Continuing present care with antibiotics, low flow oxygen and pain control.
--- NOTE | 2017-12-08 15:04 | PDOC.PN ---
- Subjective Encounter Start Date: 12/08/17 Encounter Start Time: 09:40 Pt seen for followup re: NSTEMI. Denies chest pain, shortness of breath, fevers or chills. - Objective MAR Reviewed: Yes Vital Signs & Weight: Vital Signs (12 hours) Temp Pulse Resp BP Pulse Ox 12/08/17 08:52 101 H 16 12/08/17 08:30 95 12/08/17 04:11 98.4 F 101 H 19 133/72 95 Weight Weight 264 lb 6.4 oz Most Recent Monitor Data Heart Rate from ECG 93 NIBP 96/40 NIBP BP-Mean 58 Respiration from ECG 24 SpO2 97 I&O: 12/07/17 12/08/17 12/09/17 06:59 06:59 06:59 Intake Total 3233 1428 Output Total 880 425 Balance 2353 1003 Result Diagrams: 12/08/17 04:11 12/08/17 04:11 Additional Labs: Accuchecks 12/08/17 12/08/17 12/07/17 11:12 05:47 20:40 POC Glucose 191 H 138 H 160 H 12/07/17 17:42 POC Glucose 148 H EKG Reviewed by me: Yes (Tele: NSR) Phys Exam - Physical Examination Morbid obesity HEENT: moist MMs Neck: supple Respiratory: clear to auscultation bilateral Cardiovascular: RRR Gastrointestinal: soft Neurological: moves all 4 limbs Psychiatric: normal affect Dx/Plan (1) NSTEMI (non-ST elevated myocardial infarction) Code(s): I21.4 - NON-ST ELEVATION (NSTEMI) MYOCARDIAL INFARCTION Status: Acute Comment: continue aspirin and Plavix (2) DM2 (diabetes mellitus, type 2) Status: Chronic Comment: continue accuchecks and insulin sliding scale. (3) HTN (hypertension) Code(s): I10 - ESSENTIAL (PRIMARY) HYPERTENSION Status: Chronic Comment: controlled (4) Dyslipidemia Code(s): E78.5 - HYPERLIPIDEMIA, UNSPECIFIED Status: Chronic Comment: on statin (5) Cardiogenic shock Code(s): R57.0 - CARDIOGENIC SHOCK Status: Resolved Comment: present on admission, now resolved (6) Cholecystitis Code(s): K81.9 - CHOLECYSTITIS, UNSPECIFIED Status: Ruled-out Comment: Continue oral antibiotics as below for now. - Plan * . Review of Systems - Review of Systems Cardiovascular: negative: chest pain, palpitations, orthopnea, paroxysmal nocturnal dyspnea, edema, light headedness Gastrointestinal: negative: Nausea, Vomiting, Abdominal Pain, Diarrhea, Constipation, Melena, Hematochezia - Medications/Allergies Allergies/Adverse Reactions: Allergies Allergy/AdvReac Type Severity Reaction Status Date / Time Iodinated Contrast- Oral and Allergy Verified 12/05/17 11:20 IV Dye Medications: Current Medications Acetaminophen (Tylenol) 650 mg PO Q4H PRN PRN Reason: Headache/Fever/Mild Pain (1-3) Acetaminophen (Tylenol) 650 mg SD Q4H PRN PRN Reason: Headache/Fever/Mild Pain (1-3) Amoxicillin/Clavulanate Potassium (Augmentin) 500 mg PO Q12HR [facility] Stop: 12/12/17 21:01 Last Admin: 12/08/17 09:14 Dose: 500 mg Aspirin (Ecotrin) 81 mg PO DAILY [facility] Last Admin: 12/08/17 09:14 Dose: 81 mg Atorvastatin Calcium (Lipitor) 40 mg PO HS [facility] Bisacodyl (Dulcolax) 10 mg PO DAILYPRN PRN PRN Reason: Constipation Carvedilol (Coreg) 3.125 mg PO BID-[facility] Clopidogrel Bisulfate (Plavix) 75 mg PO DAILY [facility] Last Admin: 12/08/17 09:13 Dose: 75 mg Dextrose/Water (Dextrose 50%) 25 gm SLOW IVP PRN PRN PRN Reason: Hypoglycemia Enoxaparin Sodium (Lovenox) 40 mg SC 0900 [facility] Last Admin: 12/08/17 09:14 Dose: 40 mg Fluoxetine HCl (Prozac) 20 mg PO DAILY [facility] Last Admin: 12/08/17 09:14 Dose: 20 mg Furosemide (Lasix) 40 mg SLOW IVP NOW [facility] Stop: 12/08/17 16:30 Furosemide (Lasix) 40 mg SLOW IVP DAILY [facility] Glucagon (Glucagon) 1 mg IM PRN PRN PRN Reason: Hypoglycemia Dextrose/Water (D5w) 1,000 mls @ 0 mls/hr IV .Q0M PRN PRN Reason: Hypoglycemia Insulin Human Lispro (Humalog) 0 units SC .MILD SLIDING SCALE PRN PRN Reason: Mild Correctional Scale Last Admin: 12/06/17 13:16 Dose: 2 unit Lisinopril (Zestril) 2.5 mg PO 1800 [facility] Mometasone Furoate/Formoterol Fumar (Dulera 100 Mcg/5 Mcg Inhaler) 2 puff INH BID-RT [facility] Last Admin: 12/08/17 08:52 Dose: 2 puff Morphine Sulfate (Morphine) 2 mg SLOW IVP Q5MIN PRN PRN Reason: Chest Pain Nitroglycerin (Nitrostat) 0.4 mg SL Q5MIN PRN PRN Reason: Chest Pain Potassium Chloride (Klor-Con 10) 10 meq PO BID-[facility] Stop: 12/09/17 19:00 Last Admin: 12/08/17 09:13 Dose: 10 meq Spironolactone (Aldactone) 25 mg PO QAM-[facility]
[2017-12-08] MEDS: Carvedilol 3.125 MG TAB PO SCH (16:58)
[2017-12-08] MEDS: HumaLOG 300 UNITS/3 ML VIAL SC PRN (17:56)
[2017-12-08] MEDS ORDERED: Lisinopril 5 MG TAB PO SCH (18:00)
[2017-12-09 05:21] LABS: #Eosinphils 0.2 thou/uL (0.0-0.7); #Lymphocytes 1.2 thou/uL (1.20-3.40); #Monocytes 0.9 thou/uL (0.11-0.59); %Basophils 0.2 % (0.0-1.0); %Eosinophils 2.4 % (0.0-10.0); %Lymphocytes 14.3 % (21.0-51.0); %Monocytes 10.3 % (0.0-10.0); %Neutrophils 72.7 % (42.0-75.0); Hemoglobin 10.8 g/dL (12.0-16.0); Mean Corpuscular HGB CONC 30.9 g/dL (32.0-36.0); Mean Corpuscular Hemoglobin 30.9 pg (27.0-31.0); Mean Platelet Volume 7.8 fL (7.4-10.4); Platelet Count 193 thou/uL (130-400); RBC Distribution Width 13.9 % (11.5-14.5); Red Blood Cell (RBC) Count 3.48 mill/uL (4.20-5.40); White Blood Cell (WBC) Count 8.2 thou/uL (4.8-10.8)
[2017-12-09] MEDS: Mometasone/Formoterol 120 PUFF INHALER INH SCH ×2 (06:43→19:37)
[2017-12-09] MEDS ORDERED: Spironolactone 25 MG TAB PO SCH (08:00)
[2017-12-09] MEDS ORDERED: Furosemide 40 MG/4 ML VIAL SLOW IVP SCH (09:00)
[2017-12-09] MEDS: FLUoxetine HCl 20 MG CAP PO SCH (09:15)
[2017-12-09] MEDS: Carvedilol 3.125 MG TAB PO SCH ×2 (09:15→17:20)
[2017-12-09] MEDS: Amoxicillin/Potassium Clav 500 MG TAB PO SCH ×2 (09:15→20:41)
[2017-12-09] MEDS: Ezetimibe 10 MG TAB PO SCH (09:15)
[2017-12-09] MEDS: Potassium Chloride 10 MEQ TAB PO SCH ×2 (09:16→17:20)
[2017-12-09] MEDS: Clopidogrel Bisulfate 75 MG TAB PO SCH (09:16)
[2017-12-09] MEDS: Aspirin 81 mg Enteric Coated Tablet PO SCH (09:17)
[2017-12-09] MEDS: Furosemide 40 MG/4 ML VIAL SLOW IVP SCH (09:17)
[2017-12-09] MEDS: Enoxaparin Sodium 40 MG/0.4 ML SYRINGE SC SCH (09:22)
--- NOTE | 2017-12-09 12:05 | PRG ---
DATE OF SERVICE: 12/09/2017 SUBJECTIVE: The patient is about the same. She had no acute complaints. OBJECTIVE: VITAL SIGNS: Temperature 98.0, pulse 92, respirations 19, O2 sat 97% on 2 liters, and blood pressure 121/70. GENERAL: She is obese, in no distress. HEENT: Unremarkable. NECK: No JVD. LUNGS: Diminished breath sounds in the bases. CARDIAC: S1 and S2, regular. ABDOMEN: Soft. EXTREMITIES: Trace edema. LABORATORY DATA: White blood cell count 8.2, hematocrit 34.8, platelet count 193. ASSESSMENT: 1. Hypoxic respiratory failure. 2. Status post cholecystitis. 3. Cardiomyopathy. 4. Status post acute respiratory failure. PLAN: Does not appear to be weanable from oxygen at this time as a room air O2 sat was in the 70s. Continue with the diuresis and likely will need home oxygen at the time of discharge.
[2017-12-09] MEDS: HumaLOG 300 UNITS/3 ML VIAL SC PRN ×2 (13:05→17:19)
[2017-12-09] MEDS: Lisinopril 5 MG TAB PO SCH (17:20)
--- NOTE | 2017-12-09 17:56 | PDOC.PN ---
- Subjective Encounter Start Date: 12/09/17 Encounter Start Time: 08:40 Pt seen for followup re: NSTEMI. Feels better. No chest pain. - Objective Vital Signs & Weight: Vital Signs (12 hours) Temp Pulse Pulse Pulse Resp BP BP 12/09/17 17:20 96 106/61 12/09/17 12:00 97.9 F 99 24 H 12/09/17 11:06 87 99 126/74 12/09/17 08:00 98.0 F 92 19 12/09/17 06:43 96 12 BP BP Pulse Ox Pulse Ox Pulse Ox 12/09/17 17:20 12/09/17 12:00 126/74 96 12/09/17 11:06 126/66 91 L 96 12/09/17 08:00 121/70 97 12/09/17 06:43 Weight Weight 264 lb 6.4 oz Most Recent Monitor Data Heart Rate from ECG 93 NIBP 96/40 NIBP BP-Mean 58 Respiration from ECG 24 SpO2 97 I&O: 12/08/17 12/09/17 12/10/17 06:59 06:59 06:59 Intake Total 1428 240 Output Total 425 700 Balance 1003 -460 Result Diagrams: 12/09/17 04:53 12/08/17 04:11 Additional Labs: Accuchecks 12/09/17 12/09/17 12/09/17 16:46 11:23 05:44 POC Glucose 210 H 201 H 140 H 12/08/17 20:46 POC Glucose 194 H Phys Exam - Physical Examination Morbidly obese HEENT: moist MMs Neck: full ROM Respiratory: clear to auscultation bilateral Cardiovascular: RRR, no rub Gastrointestinal: soft Neurological: moves all 4 limbs Psychiatric: normal affect Dx/Plan (1) NSTEMI (non-ST elevated myocardial infarction) Code(s): I21.4 - NON-ST ELEVATION (NSTEMI) MYOCARDIAL INFARCTION Status: Acute Comment: will continue aspirin and Plavix (2) DM2 (diabetes mellitus, type 2) Status: Chronic Comment: on accuchecks and insulin sliding scale. (3) HTN (hypertension) Code(s): I10 - ESSENTIAL (PRIMARY) HYPERTENSION Status: Chronic Comment: controlled (4) Dyslipidemia Code(s): E78.5 - HYPERLIPIDEMIA, UNSPECIFIED Status: Chronic Comment: on statin (5) Cardiogenic shock Code(s): R57.0 - CARDIOGENIC SHOCK Status: Resolved Comment: present on admission, now resolved (6) Cholecystitis Code(s): K81.9 - CHOLECYSTITIS, UNSPECIFIED Status: Ruled-out - Plan continue antibiotics, PT/OT * . Ambulate patient, continue oral antibiotics for now. Review of Systems - Review of Systems Constitutional: negative: fever, chills, sweats, weakness, malaise Cardiovascular: negative: chest pain, palpitations, orthopnea, paroxysmal nocturnal dyspnea, edema, light headedness - Medications/Allergies Allergies/Adverse Reactions: Allergies Allergy/AdvReac Type Severity Reaction Status Date / Time Iodinated Contrast- Oral and Allergy Verified 12/05/17 11:20 IV Dye Medications: Current Medications Acetaminophen (Tylenol) 650 mg PO Q4H PRN PRN Reason: Headache/Fever/Mild Pain (1-3) Acetaminophen (Tylenol) 650 mg [place] Q4H PRN PRN Reason: Headache/Fever/Mild Pain (1-3) Amoxicillin/Clavulanate Potassium (Augmentin) 500 mg PO Q12HR [facility] Stop: 12/12/17 21:01 Last Admin: 12/09/17 09:15 Dose: 500 mg Aspirin (Ecotrin) 81 mg PO DAILY [facility] Last Admin: 12/09/17 09:17 Dose: 81 mg Atorvastatin Calcium (Lipitor) 40 mg PO HS [facility] Bisacodyl (Dulcolax) 10 mg PO DAILYPRN PRN PRN Reason: Constipation Carvedilol (Coreg) 3.125 mg PO BID-[facility] Last Admin: 12/09/17 17:20 Dose: 3.125 mg Clopidogrel Bisulfate (Plavix) 75 mg PO DAILY [facility] Last Admin: 12/09/17 09:16 Dose: 75 mg Dextrose/Water (Dextrose 50%) 25 gm SLOW IVP PRN PRN PRN Reason: Hypoglycemia Ezetimibe (Zetia) 10 mg PO DAILY [facility] Last Admin: 12/09/17 09:15 Dose: 10 mg Enoxaparin Sodium (Lovenox) 40 mg SC 0900 [facility] Last Admin: 12/09/17 09:22 Dose: 40 mg Fluoxetine HCl (Prozac) 20 mg PO DAILY [facility] Last Admin: 12/09/17 09:15 Dose: 20 mg Furosemide (Lasix) 40 mg SLOW IVP DAILY [facility] Last Admin: 12/09/17 09:17 Dose: 40 mg Glucagon (Glucagon) 1 mg IM PRN PRN PRN Reason: Hypoglycemia Dextrose/Water (D5w) 1,000 mls @ 0 mls/hr IV .Q0M PRN PRN Reason: Hypoglycemia Insulin Human Lispro (Humalog) 0 units SC .MILD SLIDING SCALE PRN PRN Reason: Mild Correctional Scale Last Admin: 12/09/17 17:19 Dose: 3 unit Lisinopril (Zestril) 5 mg PO 1800 [facility] Last Admin: 12/09/17 17:20 Dose: 5 mg Mometasone Furoate/Formoterol Fumar (Dulera 100 Mcg/5 Mcg Inhaler) 2 puff INH BID-RT [facility] Last Admin: 12/09/17 06:43 Dose: 2 puff Morphine Sulfate (Morphine) 2 mg SLOW IVP Q5MIN PRN PRN Reason: Chest Pain Nitroglycerin (Nitrostat) 0.4 mg SL Q5MIN PRN PRN Reason: Chest Pain Potassium Chloride (Klor-Con 10) 10 meq PO BID-[facility] Stop: 12/09/17 19:00 Last Admin: 12/09/17 17:20 Dose: 10 meq Spironolactone (Aldactone) 50 mg PO QAM-[facility] Timolol Male[facility] 1 drop EA EYE DAILY [facility]
[2017-12-09] MEDS: Timolol 0.5% Ophth Soln 5 ml Bottle EA EYE SCH (18:21)
[2017-12-09] MEDS: Atorvastatin Calcium 40 MG TAB PO SCH (20:42)
--- NOTE | 2017-12-09 20:45 | EKG ---
Test Reason : Blood Pressure : / mmHG Vent. Rate : 088 BPM Atrial Rate : 088 BPM P-R Int : 170 ms QRS Dur : 110 ms QT Int : 358 ms P-R-T Axes : 040 -23 063 degrees QTc Int : 433 ms Normal sinus rhythm Low voltage QRS Incomplete left bundle branch block T wave abnormality, consider lateral ischemia Abnormal ECG No previous ECGs available Confirmed by Gavin PATTON ([id number]) on 12/09/2017 8:45:48 PM Referred By: DAMARI Confirmed By:Gavin PATTON
[2017-12-10 04:54] LABS: #Eosinphils 0.3 thou/uL (0.0-0.7); #Lymphocytes 1.2 thou/uL (1.20-3.40); #Monocytes 0.9 thou/uL (0.11-0.59); #Neutrophils 6.9 thou/uL (1.40-6.50); %Basophils 0.2 % (0.0-1.0); %Eosinophils 3.1 % (0.0-10.0); %Monocytes 10.1 % (0.0-10.0); %Neutrophils 73.6 % (42.0-75.0); Hemoglobin 11.3 g/dL (12.0-16.0); Mean Corpuscular Hemoglobin 30.4 pg (27.0-31.0); Mean Platelet Volume 7.7 fL (7.4-10.4); Platelet Count 211 thou/uL (130-400); RBC Distribution Width 13.9 % (11.5-14.5); Red Blood Cell (RBC) Count 3.72 mill/uL (4.20-5.40); White Blood Cell (WBC) Count 9.3 thou/uL (4.8-10.8)
[2017-12-10] MEDS: Mometasone/Formoterol 120 PUFF INHALER INH SCH ×2 (07:25→19:12)
[2017-12-10] MEDS ORDERED: Sodium Chloride 0.9% 10 ML ONE (09:05)
[2017-12-10] MEDS: Timolol 0.5% Ophth Soln 5 ml Bottle EA EYE SCH (09:42)
[2017-12-10] MEDS: Amoxicillin/Potassium Clav 500 MG TAB PO SCH ×2 (09:43→20:42)
[2017-12-10] MEDS: FLUoxetine HCl 20 MG CAP PO SCH (09:43)
[2017-12-10] MEDS: Spironolactone 25 MG TAB PO SCH (09:43)
[2017-12-10] MEDS: Ezetimibe 10 MG TAB PO SCH (09:43)
[2017-12-10] MEDS: Clopidogrel Bisulfate 75 MG TAB PO SCH (09:43)
[2017-12-10] MEDS: Enoxaparin Sodium 40 MG/0.4 ML SYRINGE SC SCH (09:44)
[2017-12-10] MEDS: Furosemide 40 MG/4 ML VIAL SLOW IVP SCH (09:44)
[2017-12-10] MEDS: Carvedilol 3.125 MG TAB PO SCH ×2 (09:44→18:03)
[2017-12-10] MEDS: Aspirin 81 mg Enteric Coated Tablet PO SCH (09:44)
--- NOTE | 2017-12-10 10:00 | PRG ---
DATE OF SERVICE: 12/10/2017 The patient seems to be doing reasonably well. She has no acute complaints. PHYSICAL EXAMINATION: VITAL SIGNS: Temperature 96.3, pulse 96, respirations 18, O2 sat 95% on 2 liters, blood pressure 122 /57. HEENT: Unremarkable. NECK: No JVD. CHEST: Clear without wheezing or rhonchi. CARDIAC: S1 and S2 regular. ABDOMEN: Soft. EXTREMITIES: No edema. LABORATORY DATA: White blood cell count 9.3, hematocrit 36.5, platelet count 211. No chemistry was done today. ASSESSMENT: 1. Hypoxemic respiratory failure which appears to be improving. 2. Cardiomyopathy. 3. Status post acute respiratory failure. PLAN: The main issue is just to wean her oxygen off. Her pulmonary status seems stable. No further recommendations. We will sign off the case. Please recall if further assistance needed.
[2017-12-10] MEDS: HumaLOG 300 UNITS/3 ML VIAL SC PRN (13:57)
--- NOTE | 2017-12-10 18:25 | PDOC.PN ---
- Subjective Encounter Start Date: 12/10/17 Encounter Start Time: 09:20 Pt seen for followup re: physical deconditioning. Denies chest pain, shortness of breath, fevers or chills. - Objective MAR Reviewed: Yes Vital Signs & Weight: Vital Signs (12 hours) Temp Pulse Pulse Resp BP BP BP 12/10/17 18:00 86 20 12/10/17 16:00 98.0 F 85 20 12/10/17 15:31 87 105/61 104/59 L 12/10/17 12:00 98.2 F 85 18 12/10/17 09:42 96 122/57 L 12/10/17 08:00 96.3 F L 96 18 12/10/17 07:26 12/10/17 07:25 86 12 BP Pulse Ox 12/10/17 18:00 97/56 L 12/10/17 16:00 105/53 L 12/10/17 15:31 12/10/17 12:00 105/59 L 96 12/10/17 09:42 12/10/17 08:00 122/57 L 95 12/10/17 07:26 97 12/10/17 07:25 Weight Weight 261 lb 6.4 oz Most Recent Monitor Data Heart Rate from ECG 93 NIBP 96/40 NIBP BP-Mean 58 Respiration from ECG 24 SpO2 97 I&O: 12/09/17 12/10/17 12/11/17 06:59 06:59 06:59 Intake Total 240 850 Output Total 700 450 Balance -460 400 Result Diagrams: 12/10/17 04:40 12/08/17 04:11 Additional Labs: Accuchecks 12/10/17 12/09/17 06:03 20:39 POC Glucose 133 H 155 H EKG Reviewed by me: Yes (Tele: NSR) Phys Exam - Physical Examination Morbid obesity HEENT: moist MMs Neck: supple Respiratory: clear to auscultation bilateral Cardiovascular: RRR Gastrointestinal: soft Neurological: moves all 4 limbs Psychiatric: normal affect Skin: no rash Dx/Plan (1) Physical deconditioning Code(s): R53.81 - OTHER MALAISE Status: Acute Comment: will likely need SNU (2) NSTEMI (non-ST elevated myocardial infarction) Code(s): I21.4 - NON-ST ELEVATION (NSTEMI) MYOCARDIAL INFARCTION Status: Acute Comment: on aspirin and Plavix (3) DM2 (diabetes mellitus, type 2) Status: Chronic Comment: continue insulin sliding scale. (4) HTN (hypertension) Code(s): I10 - ESSENTIAL (PRIMARY) HYPERTENSION Status: Chronic Comment: controlled (5) Dyslipidemia Code(s): E78.5 - HYPERLIPIDEMIA, UNSPECIFIED Status: Chronic Comment: continue statin (6) Cardiogenic shock Code(s): R57.0 - CARDIOGENIC SHOCK Status: Resolved Comment: present on admission, now resolved (7) Cholecystitis Code(s): K81.9 - CHOLECYSTITIS, UNSPECIFIED Status: Ruled-out - Plan PT/OT * . Review of Systems - Review of Systems Constitutional: weakness. negative: fever, chills, sweats, malaise Cardiovascular: negative: chest pain, palpitations, orthopnea, paroxysmal nocturnal dyspnea, edema, light headedness - Medications/Allergies Allergies/Adverse Reactions: Allergies Allergy/AdvReac Type Severity Reaction Status Date / Time Iodinated Contrast- Oral and Allergy Verified 12/05/17 11:20 IV Dye Medications: Current Medications Acetaminophen (Tylenol) 650 mg PO Q4H PRN PRN Reason: Headache/Fever/Mild Pain (1-3) Acetaminophen (Tylenol) 650 mg [place] Q4H PRN PRN Reason: Headache/Fever/Mild Pain (1-3) Amoxicillin/Clavulanate Potassium (Augmentin) 500 mg PO Q12HR [facility] Stop: 12/12/17 21:01 Last Admin: 12/10/17 09:43 Dose: 500 mg Aspirin (Ecotrin) 81 mg PO DAILY [facility] Last Admin: 12/10/17 09:44 Dose: 81 mg Atorvastatin Calcium (Lipitor) 40 mg PO HS [facility] Last Admin: 12/09/17 20:42 Dose: 40 mg Bisacodyl (Dulcolax) 10 mg PO DAILYPRN PRN PRN Reason: Constipation Carvedilol (Coreg) 3.125 mg PO BID-[facility] Last Admin: 12/10/17 18:03 Dose: 3.125 mg Clopidogrel Bisulfate (Plavix) 75 mg PO DAILY [facility] Last Admin: 12/10/17 09:43 Dose: 75 mg Dextrose/Water (Dextrose 50%) 25 gm SLOW IVP PRN PRN PRN Reason: Hypoglycemia Ezetimibe (Zetia) 10 mg PO DAILY [facility] Last Admin: 12/10/17 09:43 Dose: 10 mg Enoxaparin Sodium (Lovenox) 40 mg SC 0900 [facility] Last Admin: 12/10/17 09:44 Dose: 40 mg Fluoxetine HCl (Prozac) 20 mg PO DAILY [facility] Last Admin: 12/10/17 09:43 Dose: 20 mg Furosemide (Lasix) 40 mg SLOW IVP DAILY [facility] Last Admin: 12/10/17 09:44 Dose: 40 mg Glucagon (Glucagon) 1 mg IM PRN PRN PRN Reason: Hypoglycemia Dextrose/Water (D5w) 1,000 mls @ 0 mls/hr IV .Q0M PRN PRN Reason: Hypoglycemia Insulin Human Lispro (Humalog) 0 units SC .MILD SLIDING SCALE PRN PRN Reason: Mild Correctional Scale Last Admin: 12/10/17 13:57 Dose: 3 unit Lisinopril (Zestril) 5 mg PO 1800 [facility] Last Admin: 12/09/17 17:20 Dose: 5 mg Mometasone Furoate/Formoterol Fumar (Dulera 100 Mcg/5 Mcg Inhaler) 2 puff INH BID-RT [facility] Last Admin: 12/10/17 07:25 Dose: 2 puff Morphine Sulfate (Morphine) 2 mg SLOW IVP Q5MIN PRN PRN Reason: Chest Pain Nitroglycerin (Nitrostat) 0.4 mg SL Q5MIN PRN PRN Reason: Chest Pain Spironolactone (Aldactone) 50 mg PO QAM-WM [facility] Last Admin: 12/10/17 09:43 Dose: 50 mg Timolol Maleate (Timoptic 0.5% [facility]) 1 drop EA EYE DAILY [facility] Last Admin: 12/10/17 09:42 Dose: 1 drop
[2017-12-10] MEDS: Lisinopril 5 MG TAB PO SCH (19:20)
[2017-12-10] MEDS: Atorvastatin Calcium 40 MG TAB PO SCH (20:42)
--- NOTE | 2017-12-10 20:58 | PRG ---
DATE OF SERVICE: 12/10/2017. Ms. Pereira is very inactive. She has trouble getting around, even in the bed. She is extremely sore in her chest. As mentioned previously, she did have chest compressions on the way over from [facility]. PHYSICAL EXAMINATION: VITAL SIGNS: Her blood pressure is 97/56, pulse 86 regular. LUNGS: Clear. CARDIAC: Normal S1 and normal S2. ASSESSMENT: 1. Inoperable 3-vessel coronary artery disease. 2. Depressed left ventricular function with an ejection fraction of 15%-20%, apex akinetic. 3. Cardiac arrest occurred in transit. She has sinus tachycardia, bradycardia, and asystole. The p atient had depressed left ventricular function even preoperatively, was already on JOSEF inhibitors and beta blockers, lisinopril, and metoprolol. PLAN: Prior to discharge, need to strongly consider defibrillator implantation. Long-Term prognosis obviously is very poor, trying to adjust medicines as an inpatient at the present time.
[2017-12-11 05:06] LABS: #Eosinphils 0.3 thou/uL (0.0-0.7); #Lymphocytes 1.1 thou/uL (1.20-3.40); %Basophils 0.3 % (0.0-1.0); %Eosinophils 2.7 % (0.0-10.0); %Lymphocytes 9.8 % (21.0-51.0); %Monocytes 8.9 % (0.0-10.0); %Neutrophils 78.2 % (42.0-75.0); Hemoglobin 10.8 g/dL (12.0-16.0); Mean Corpuscular HGB CONC 31.5 g/dL (32.0-36.0); Mean Corpuscular Hemoglobin 30.4 pg (27.0-31.0); Mean Corpuscular Volume 96.6 fL (78.0-98.0); Mean Platelet Volume 7.8 fL (7.4-10.4); Platelet Count 220 thou/uL (130-400); RBC Distribution Width 14.1 % (11.5-14.5); Red Blood Cell (RBC) Count 3.55 mill/uL (4.20-5.40); White Blood Cell (WBC) Count 11.5 thou/uL (4.8-10.8)
[2017-12-11] MEDS: Mometasone/Formoterol 120 PUFF INHALER INH SCH ×2 (07:41→19:19)
[2017-12-11] MEDS ORDERED: Sodium Chloride 0.9% 10 ML ONE ×2 (09:06→14:29)
[2017-12-11] MEDS: Timolol 0.5% Ophth Soln 5 ml Bottle EA EYE SCH (10:27)
[2017-12-11] MEDS: Carvedilol 3.125 MG TAB PO SCH ×2 (10:28→16:42)
[2017-12-11] MEDS: Clopidogrel Bisulfate 75 MG TAB PO SCH (10:29)
[2017-12-11] MEDS: Ezetimibe 10 MG TAB PO SCH (10:29)
[2017-12-11] MEDS: FLUoxetine HCl 20 MG CAP PO SCH (10:29)
[2017-12-11] MEDS: Spironolactone 25 MG TAB PO SCH (10:30)
[2017-12-11] MEDS: Furosemide 40 MG/4 ML VIAL SLOW IVP SCH (10:30)
[2017-12-11] MEDS: Amoxicillin/Potassium Clav 500 MG TAB PO SCH ×2 (10:30→21:34)
--- NOTE | 2017-12-11 10:30 | PRG ---
DATE OF SERVICE: 12/11/2017 Ms. Pereira remains extremely weak. She is having still some trouble breathing with just a little bit of exertion in the bed. PHYSICAL EXAMINATION: VITAL SIGNS: Blood pressure 125/65, pulse 90. LUNGS: Clear anteriorly and laterally. CARDIAC: Normal S1, normal S2. ABDOMEN: Soft, nontender. EXTREMITIES: There is only mild edema, but she is really only in bed. ASSESSMENT: 1. Three-vessel coronary artery disease, inoperable. 2. Generalized debilitated state. 3. Longstanding low ejection fraction. The ejection fraction was 35% on 08/02/2017, it is now 15-2 0%. PLAN: 1. Continue diuretics. 2. Spironolactone. 3. Continue JOSEF inhibitor. 4. We will consult Electrophysiology. I would recommend consideration for defibrillator prior to butch denny, although even with defibrillator long-term prognosis is poor. I think it would be appropria te to have that discussion prior to discharge whether she gets a defibrillator at this time.
[2017-12-11] MEDS: Enoxaparin Sodium 40 MG/0.4 ML SYRINGE SC SCH (10:31)
[2017-12-11] MEDS: Aspirin 81 mg Enteric Coated Tablet PO SCH (10:32)
[2017-12-11] MEDS ORDERED: Potassium Chloride 20 MEQ TAB PO SCH (12:00)
[2017-12-11] MEDS ORDERED: Furosemide 20 MG/2 ML VIAL SLOW IVP SCH ×2 (16:00)
[2017-12-11] MEDS ORDERED: Furosemide 40 MG/4 ML VIAL SLOW IVP SCH (16:00)
[2017-12-11] MEDS: HumaLOG 300 UNITS/3 ML VIAL SC PRN (16:48)
[2017-12-11] MEDS: Lisinopril 5 MG TAB PO SCH (18:32)
[2017-12-11] MEDS: Atorvastatin Calcium 40 MG TAB PO SCH (21:34)
[2017-12-11] MEDS: Lidocaine 5% Patch TD SCH (21:35)
--- NOTE | 2017-12-11 22:44 | PDOC.PN ---
- Subjective Encounter Start Date: 12/11/17 Encounter Start Time: 17:00 Subjective: nsg notes rev, ирина ovn, no new c/o but still has soreness in her chest -: has been using ICS frequently to produce a cough that is non productive but -: uncomfortable - no pain at rest - Objective Vital Signs & Weight: Vital Signs (12 hours) Temp Pulse Pulse Pulse Resp BP BP 12/11/17 19:19 84 16 12/11/17 19:15 98 F 84 16 117/69 12/11/17 18:32 89 109/65 12/11/17 16:00 97.7 F 86 19 105/56 L 12/11/17 12:00 97.6 F 87 20 105/56 L 12/11/17 11:48 89 91 Pulse Ox Pulse Ox Pulse Ox 12/11/17 19:19 96 12/11/17 19:15 95 12/11/17 18:32 12/11/17 16:00 96 12/11/17 12:00 96 12/11/17 11:48 96 94 L Weight Weight 262 lb Most Recent Monitor Data Heart Rate from ECG 93 NIBP 96/40 NIBP BP-Mean 58 Respiration from ECG 24 SpO2 97 I&O: 12/10/17 12/11/17 12/12/17 06:59 06:59 06:59 Intake Total 850 50 740 Output Total 450 200 900 Balance 400 -150 -160 Result Diagrams: 12/12/17 05:48 12/12/17 05:03 Additional Labs: Accuchecks 12/11/17 12/11/17 12/10/17 16:43 05:41 16:54 POC Glucose 164 H 141 H 166 H 12/10/17 11:30 POC Glucose 205 H Phys Exam - Physical Examination Constitutional: NAD Dx/Plan - Plan Morbid obesity HEENT: moist MMs Neck: supple Respiratory: clear to auscultation bilateral Cardiovascular: RRR, pulses 2+ b/l UE Gastrointestinal: soft Neurological: moves all 4 limbs Psychiatric: normal affect Skin: no rash Dx/Plan (1) Physical deconditioning Code(s): R53.81 - OTHER MALAISE Status: Acute Comment: will likely need SNU encourage activity (2) NSTEMI (non-ST elevated myocardial infarction) Code(s): I21.4 - NON-ST ELEVATION (NSTEMI) MYOCARDIAL INFARCTION Status: Acute Comment: on aspirin and Plavix with a component of post NSTEMI heart failure diuresis as tolerated apprec cardiology c/s (3) DM2 (diabetes mellitus, type 2) Status: Chronic Comment: continue insulin sliding scale. (4) HTN (hypertension) Code(s): I10 - ESSENTIAL (PRIMARY) HYPERTENSION Status: Chronic Comment: controlled somewhat hypotensive with SBP in the 100's cautious continuation of lisinopril, coreg, and lasix - dec lasix today only from 40mg IV to 20mg IV asymptomatic with relative hypotension (5) Dyslipidemia Code(s): E78.5 - HYPERLIPIDEMIA, UNSPECIFIED Status: Chronic Comment: continue statin (6) Cardiogenic shock Code(s): R57.0 - CARDIOGENIC SHOCK Status: Resolved Comment: present on admission, now resolved (7) Cholecystitis Code(s): K81.9 - CHOLECYSTITIS, UNSPECIFIED Status: Ruled-out - Plan PT/OT diet: as ella activity: as ella dvt ppx
[2017-12-12 05:31] LABS: Anion Gap 11 mmol/L (10-20); BUN (Urea Nitrogen) 15 mg/dL (9.8-20.1); Calc. Creatinine Clearance 139 mL/min (70-130); Calcium 8.5 mg/dL (7.8-10.44); Carbon Dioxide 30 mmol/L (23-31); Chloride 101 mmol/L (98-107); Estimated GFR-MDRD Greater than 90; Glucose 103 mg/dL (83-110); Potassium 4.3 mmol/L (3.5-5.1); Sodium 138 mmol/L (136-145)
[2017-12-12 05:58] LABS: #Eosinphils 0.3 thou/uL (0.0-0.7); #Lymphocytes 1.3 thou/uL (1.20-3.40); #Monocytes 0.9 thou/uL (0.11-0.59); #Neutrophils 10.1 thou/uL (1.40-6.50); %Basophils 0.2 % (0.0-1.0); %Eosinophils 2.2 % (0.0-10.0); %Lymphocytes 10.2 % (21.0-51.0); %Neutrophils 80.4 % (42.0-75.0); Hemoglobin 11.3 g/dL (12.0-16.0); Mean Corpuscular HGB CONC 31.7 g/dL (32.0-36.0); Mean Corpuscular Hemoglobin 30.7 pg (27.0-31.0); Mean Corpuscular Volume 96.9 fL (78.0-98.0); Mean Platelet Volume 7.7 fL (7.4-10.4); Platelet Count 260 thou/uL (130-400); RBC Distribution Width 14.1 % (11.5-14.5); Red Blood Cell (RBC) Count 3.67 mill/uL (4.20-5.40); White Blood Cell (WBC) Count 12.6 thou/uL (4.8-10.8)
[2017-12-12] MEDS: Mometasone/Formoterol 120 PUFF INHALER INH SCH ×2 (07:17→19:00)
[2017-12-12] MEDS: Enoxaparin Sodium 40 MG/0.4 ML SYRINGE SC SCH (08:05)
[2017-12-12] MEDS: Timolol 0.5% Ophth Soln 5 ml Bottle EA EYE SCH (08:05)
[2017-12-12] MEDS: Spironolactone 25 MG TAB PO SCH (08:06)
[2017-12-12] MEDS: Furosemide 40 MG/4 ML VIAL SLOW IVP SCH (08:06)
[2017-12-12] MEDS: Amoxicillin/Potassium Clav 500 MG TAB PO SCH ×2 (08:06→20:50)
[2017-12-12] MEDS: Carvedilol 3.125 MG TAB PO SCH ×2 (08:06→17:44)
[2017-12-12] MEDS: Ezetimibe 10 MG TAB PO SCH (08:06)
[2017-12-12] MEDS: Aspirin 81 mg Enteric Coated Tablet PO SCH (08:06)
[2017-12-12] MEDS: Clopidogrel Bisulfate 75 MG TAB PO SCH (08:06)
[2017-12-12] MEDS: FLUoxetine HCl 20 MG CAP PO SCH (08:06)
[2017-12-12] MEDS: Lidocaine Patch Removal 1 EACH TOP SCH (08:07)
[2017-12-12] MEDS: Acetaminophen 325 MG TAB PO PRN ×2 (12:01→20:50)
--- NOTE | 2017-12-12 13:28 | PRG ---
DATE OF SERVICE: 12/12/2017 Ms. Pereira is very immobile. She really was not very mobile even before this episode. She says it really hurts to take a breath, but she had chest compressions done this admission. She i s alert and oriented. PHYSICAL EXAMINATION: LUNGS: Clear. Lung sounds are distant. CARDIAC: Very distant heart sounds. ABDOMEN: Obese, nontender. EXTREMITIES: Mild edema. ASSESSMENT: 1. Congestive heart failure, systolic, acute on chronic, improved. 2. Chest wall soreness due to chest compressions being done with cardiac arrest. PLAN: 1. We will order chest x-ray to be done this afternoon. She said she is having a lot of coughing. 2. Consult Electrophysiology about possible defibrillator implantation.
--- NOTE | 2017-12-12 14:23 | RAD ---
UPRIGHT PORTABLE CHEST ONE VIEW: History: 77-year-old female with history of congestive heart failure. Comparison: 12-08-17 FINDINGS: Cardiomegaly with bilateral vascular congestion. Small bilateral pleural effusions. IMPRESSION: Cardiomegaly with vascular congestion and small pleural effusions showing little change from prior st udy. POS: [facility]
[2017-12-12] MEDS: Lisinopril 5 MG TAB PO SCH (17:45)
[2017-12-12] MEDS: HumaLOG 300 UNITS/3 ML VIAL SC PRN (18:44)
[2017-12-12] MEDS: Atorvastatin Calcium 40 MG TAB PO SCH (20:50)
[2017-12-12] MEDS: Lidocaine 5% Patch TD SCH (20:50)
[2017-12-12] MEDS: Sodium Chloride 0.9% 30 ML ONE (21:13)
--- NOTE | 2017-12-12 21:39 | PDOC.PN ---
- Subjective Encounter Start Date: 12/12/17 Encounter Start Time: 15:00 Subjective: nsg notes rev, ирина ovn, same chest discomfort and cough as before - Objective Vital Signs & Weight: Vital Signs (12 hours) Temp Pulse Resp BP BP Pulse Ox 12/12/17 20:42 98.5 F 82 20 104/55 L 98 12/12/17 19:00 82 14 92 L 12/12/17 17:45 86 106/56 L 12/12/17 17:43 106/56 L 12/12/17 15:08 96/50 L 12/12/17 15:06 99.6 F 86 18 92/51 L 94 L 12/12/17 11:02 98.8 F 86 18 99/55 L 98 Weight Weight 259 lb 1.6 oz Most Recent Monitor Data Heart Rate from ECG 93 NIBP 96/40 NIBP BP-Mean 58 Respiration from ECG 24 SpO2 97 I&O: 12/11/17 12/12/17 12/13/17 06:59 06:59 06:59 Intake Total 50 980 1280 Output Total 200 1200 850 Balance -150 -220 430 Result Diagrams: 12/12/17 05:48 12/12/17 05:03 Additional Labs: Accuchecks 12/12/17 12/12/17 12/12/17 17:27 11:05 05:49 POC Glucose 175 H 124 H 107 12/11/17 20:28 POC Glucose 128 H Phys Exam - Physical Examination Constitutional: NAD Dx/Plan - Plan vHEENT: moist MMs Neck: supple Respiratory: clear to auscultation bilateral, ICS <500 cc Cardiovascular: RRR, s1, s2, pulses 2+ b/l UE, 1+ to trace b/l LE edema Gastrointestinal: soft Neurological: moves all 4 limbs Psychiatric: normal affect Skin: no rash Dx/Plan (1) Physical deconditioning Code(s): R53.81 - OTHER MALAISE Status: Acute Comment: will likely need SNU encourage activity (2) NSTEMI (non-ST elevated myocardial infarction) Code(s): I21.4 - NON-ST ELEVATION (NSTEMI) MYOCARDIAL INFARCTION Status: Acute Comment: on aspirin and Plavix with a component of post NSTEMI heart failure diuresis as tolerated apprec cardiology c/s - d/w Dr. Isaac - poss EP eval inpt vs outpt (3) DM2 (diabetes mellitus, type 2) Status: Chronic Comment: continue insulin sliding scale. (4) HTN (hypertension) Code(s): I10 - ESSENTIAL (PRIMARY) HYPERTENSION Status: Chronic Comment: controlled somewhat hypotensive with SBP in the 100's cautious continuation of lisinopril, coreg, and lasix asymptomatic with relative hypotension (5) Dyslipidemia Code(s): E78.5 - HYPERLIPIDEMIA, UNSPECIFIED Status: Chronic Comment: continue statin (6) Cardiogenic shock Code(s): R57.0 - CARDIOGENIC SHOCK Status: Resolved Comment: present on admission, now resolved (7) Cholecystitis Code(s): K81.9 - CHOLECYSTITIS, UNSPECIFIED Status: Ruled-out - Plan PT/OT diet: as ella activity: as ella dvt ppx overall guarded intermediate prognosis palliative care c/s Review of Systems - Medications/Allergies Allergies/Adverse Reactions: Allergies Allergy/AdvReac Type Severity Reaction Status Date / Time Iodinated Contrast- Oral and Allergy Verified 12/05/17 11:20 IV Dye Medications: Current Medications Acetaminophen (Tylenol) 650 mg PO Q4H PRN PRN Reason: Headache/Fever/Mild Pain (1-3) Last Admin: 12/12/17 20:50 Dose: 650 mg Acetaminophen (Tylenol) 650 mg [place] Q4H PRN PRN Reason: Headache/Fever/Mild Pain (1-3) Aspirin (Ecotrin) 81 mg PO DAILY [facility] Last Admin: 12/12/17 08:06 Dose: 81 mg Atorvastatin Calcium (Lipitor) 40 mg PO HS [facility] Last Admin: 12/12/17 20:50 Dose: 40 mg Bisacodyl (Dulcolax) 10 mg PO DAILYPRN PRN PRN Reason: Constipation Carvedilol (Coreg) 3.125 mg PO BID-WM [facility] Last Admin: 12/12/17 17:44 Dose: 3.125 mg Clopidogrel Bisulfate (Plavix) 75 mg PO DAILY [facility] Last Admin: 12/12/17 08:06 Dose: 75 mg Dextrose/Water (Dextrose 50%) 25 gm SLOW IVP PRN PRN PRN Reason: Hypoglycemia Ezetimibe (Zetia) 10 mg PO DAILY [facility] Last Admin: 12/12/17 08:06 Dose: 10 mg Enoxaparin Sodium (Lovenox) 40 mg SC 0900 [facility] Last Admin: 12/12/17 08:05 Dose: 40 mg Fluoxetine HCl (Prozac) 20 mg PO DAILY [facility] Last Admin: 12/12/17 08:06 Dose: 20 mg Furosemide (Lasix) 40 mg SLOW IVP DAILY [facility] Last Admin: 12/12/17 08:06 Dose: 40 mg Glucagon (Glucagon) 1 mg IM PRN PRN PRN Reason: Hypoglycemia Dextrose/Water (D5w) 1,000 mls @ 0 mls/hr IV .Q0M PRN PRN Reason: Hypoglycemia Insulin Human Lispro (Humalog) 0 units SC .MILD SLIDING SCALE PRN PRN Reason: Mild Correctional Scale Last Admin: 12/12/17 18:44 Dose: 2 unit Lidocaine (Lidoderm 5% Patch) 1 patch TD 2100 [facility] Last Admin: 12/12/17 20:50 Dose: 1 patch Lisinopril (Zestril) 5 mg PO 1800 [facility] Last Admin: 12/12/17 17:45 Dose: 5 mg Miscellaneous Medication (Lidocaine Patch Removal) 1 each TOP 0900 [facility] Last Admin: 12/12/17 08:07 Dose: Not Given Mometasone Furoate/Formoterol Fumar (Dulera 100 Mcg/5 Mcg Inhaler) 2 puff INH BID-RT [facility] Last Admin: 12/12/17 19:00 Dose: 2 puff Morphine Sulfate (Morphine) 2 mg SLOW IVP Q5MIN PRN PRN Reason: Chest Pain Nitroglycerin (Nitrostat) 0.4 mg SL Q5MIN PRN PRN Reason: Chest Pain Spironolactone (Aldactone) 50 mg PO QAM-WM [facility] Last Admin: 12/12/17 08:06 Dose: 50 mg Timolol Maleate (Timoptic 0.5% [facility]) 1 drop EA EYE DAILY [facility] Last Admin: 12/12/17 08:05 Dose: 1 drop
[2017-12-13] MEDS ORDERED: Benzonatate 100 MG CAP PO PRN (03:27)
[2017-12-13] MEDS ORDERED: guaiFENesin 200 MG TAB PO PRN (03:28)
[2017-12-13 05:39] LABS: #Eosinphils 0.4 thou/uL (0.0-0.7); #Lymphocytes 1.3 thou/uL (1.20-3.40); #Monocytes 1.2 thou/uL (0.11-0.59); #Neutrophils 9.2 thou/uL (1.40-6.50); %Basophils 0.1 % (0.0-1.0); %Eosinophils 3.4 % (0.0-10.0); %Lymphocytes 10.7 % (21.0-51.0); %Monocytes 9.9 % (0.0-10.0); %Neutrophils 75.9 % (42.0-75.0); Hemoglobin 11.5 g/dL (12.0-16.0); Mean Corpuscular HGB CONC 32.5 g/dL (32.0-36.0); Mean Corpuscular Hemoglobin 30.9 pg (27.0-31.0); Mean Platelet Volume 7.9 fL (7.4-10.4); Platelet Count 173 thou/uL (130-400); RBC Distribution Width 14.3 % (11.5-14.5); Red Blood Cell (RBC) Count 3.73 mill/uL (4.20-5.40); White Blood Cell (WBC) Count 12.1 thou/uL (4.8-10.8)
[2017-12-13] MEDS: Mometasone/Formoterol 120 PUFF INHALER INH SCH ×2 (07:00→19:43)
[2017-12-13] MEDS: Carvedilol 3.125 MG TAB PO SCH ×2 (09:56→17:19)
[2017-12-13] MEDS: Spironolactone 25 MG TAB PO SCH (09:57)
[2017-12-13] MEDS: Aspirin 81 mg Enteric Coated Tablet PO SCH (09:58)
[2017-12-13] MEDS: Enoxaparin Sodium 40 MG/0.4 ML SYRINGE SC SCH (09:58)
[2017-12-13] MEDS: Clopidogrel Bisulfate 75 MG TAB PO SCH (09:58)
[2017-12-13] MEDS: Ezetimibe 10 MG TAB PO SCH (09:59)
[2017-12-13] MEDS: Furosemide 40 MG/4 ML VIAL SLOW IVP SCH (10:00)
[2017-12-13] MEDS: FLUoxetine HCl 20 MG CAP PO SCH (10:00)
[2017-12-13] MEDS: Timolol 0.5% Ophth Soln 5 ml Bottle EA EYE SCH (10:01)
[2017-12-13] MEDS: Lidocaine Patch Removal 1 EACH TOP SCH (10:01)
[2017-12-13] MEDS: Sodium Chloride 0.9% 30 ML ONE (10:02)
--- NOTE | 2017-12-13 10:13 | PRG ---
DATE OF SERVICE: 12/13/2017. Ms. Pereira is doing a little bit better today. Her breathing is somewhat better. She is still very sore in her chest where she had chest compressions. PHYSICAL EXAMINATION: LUNGS: Clear anteriorly and laterally. CARDIAC: Normal S1, normal S2. ABDOMEN: Soft, nontender. ASSESSMENT: 1. Congestive heart failure, systolic, chronic, with most recent ejection fraction being all the way down to 15-20% with akinesis of the apex. 2. Inoperable three-vessel coronary artery disease. 3. Morbid obesity. 4. Status post cardiac arrest. PLAN: 1. Consult Electrophysiology. She would like to have defibrillator implanted. 2. She is receiving JOSEF inhibitors and beta blockers as the blood pressure allows. 3. She is on dual antiplatelet therapy. 4. She is on cholesterol lowering agents.
--- NOTE | 2017-12-13 12:09 | CON ---
DATE OF CONSULTATION: 12/13/2017 ELECTROPHYSIOLOGY CONSULTATION REQUESTING PHYSICIAN: Dr. Jaiden Gray REASON FOR REQUEST: Consideration for ICD. HISTORY OF PRESENT ILLNESS: Ms. Pereira is a 77-year-old female with a history of severe inopera ble coronary artery disease, chronic systolic congestive heart failure and NYHA class 3-4, diabetes, hypertension, hyperlipidemia who was admitted to the hospital after having congestive heart failure e xacerbation in transport. Between the transfer, she had an asystolic event and underwent CPR. She w as intubated and eventually weaned from the defibrillator. Currently, she reports having a severe co ugh as well as improved, but shortness of breath that is still present. PAST MEDICAL HISTORY: Inoperable 3-vessel severe coronary artery disease, hypertension, chronic syst olic congestive heart failure, estimated ejection fraction of 15%, diabetes, hypertension, hyperlipid emia, history of Guillain Beatrice. ALLERGIES: She has no allergies. MEDICATIONS: At home include aspirin, lisinopril, Lipitor, Bumex, Plavix. FAMILY HISTORY: There is no early coronary artery disease, sudden cardiac . SOCIAL HISTORY: She does not drink, smoke, use illicit medications. REVIEW OF SYSTEMS: Reviewed. She denies nausea, vomiting, diarrhea, fevers, chills, change in visio n or hearing. She does report a persistent cough. PHYSICAL EXAMINATION: VITAL SIGNS: She is afebrile. Pulse 80, blood pressure 121/62. HEENT: Pupils equal, round, react to light and accommodation. Extraocular movements are intact. No se midline. Septum has no rhinorrhea or epistaxis. Throat is without erythema or exudate. NECK: Supple without lymphadenopathy or goiter. JVD at 14 cm at 80 degrees. HEART: Regular rate and rhythm with distant heart sounds. LUNGS: Coarse breath sounds bilaterally, bilateral rales to the mid lung douglas. ABDOMEN: Soft, nontender, nondistended. Present bowel sounds. EXTREMITIES: No cyanosis, clubbing, there is 2+ edema bilaterally. NEUROLOGIC: Cranial nerves II-XII are grossly intact. LABORATORY: White count is 12.1, hemoglobin 11.5. She has 76% neutrophils. Creatinine 0.62. DIAGNOSTICS: Electrocardiogram on admission showed QRS prolongation. However, this improved during the hospitalization. QRS is 110 milliseconds. EKG from 12/06/2017, sinus rhythm, incomplete left bu ndle branch block. Echocardiograms estimated ejection fraction of 15%. IMPRESSION: 1. Severe nonoperable coronary artery disease. 2. Severe chronic systolic congestive heart failure NYHA class 3-4. Estimated ejection fraction of 15%. RECOMMENDATIONS: Ms. Pereira is a very difficult situation, she has severe coronary artery disea se. However, she is felt to be too high risk for revascularization. We discussed ICD including the risks, benefits, alternatives, and personnel. She understands that this is high risk and may not imp rove her long-term mortality considering unrevascularizable disease. She understands this and agrees to proceed. We did discuss she will likely need a dual chamber device considering her reported asys tolic event. She is in no condition at this point for a defibrillator since she has not gone 10 seco nds without coughing. I would recommend further optimization of her heart failure or plan for likely defibrillator placement next week.
[2017-12-13] MEDS: Lisinopril 5 MG TAB PO SCH (17:19)
--- NOTE | 2017-12-13 17:40 | PDOC.PN ---
- Subjective Encounter Start Date: 12/13/17 Encounter Start Time: 08:20 Pt seen for followup re: physical deconditioning. Feels slightly better, not ambulating. - Objective MAR Reviewed: Yes Vital Signs & Weight: Vital Signs (12 hours) Temp Pulse Pulse Pulse Resp BP BP 12/13/17 17:19 90 121/56 L 12/13/17 17:12 98.7 F 90 19 12/13/17 15:20 86 88 105/56 L 12/13/17 11:59 98.3 F 82 18 12/13/17 10:01 92 118/74 12/13/17 09:47 92 12/13/17 09:35 12/13/17 08:22 98.1 F 85 20 12/13/17 07:34 98.1 F 85 20 12/13/17 07:01 12/13/17 07:00 83 16 BP BP Pulse Ox Pulse Ox Pulse Ox 12/13/17 17:19 12/13/17 17:12 121/56 L 95 12/13/17 15:20 116/70 97 94 L 12/13/17 11:59 97/64 96 12/13/17 10:01 12/13/17 09:47 118/74 12/13/17 09:35 98 12/13/17 08:22 125/59 L 96 12/13/17 07:34 125/59 L 96 12/13/17 07:01 98 12/13/17 07:00 98 Weight Weight 260 lb 12.8 oz Most Recent Monitor Data Heart Rate from ECG 93 NIBP 96/40 NIBP BP-Mean 58 Respiration from ECG 24 SpO2 97 I&O: 12/12/17 12/13/17 12/14/17 06:59 06:59 06:59 Intake Total 980 1460 Output Total 1200 950 Balance -220 510 Result Diagrams: 12/14/17 09:40 12/12/17 05:03 Additional Labs: Accuchecks 12/13/17 12/13/17 12/13/17 16:22 10:42 05:40 POC Glucose 164 H 200 H 107 12/12/17 12/12/17 20:32 17:27 POC Glucose 165 H 175 H EKG Reviewed by me: Yes (Tele: NSR) Phys Exam - Physical Examination Morbid obesity HEENT: moist MMs, sclera anicteric Neck: supple, full ROM Respiratory: clear to auscultation bilateral Cardiovascular: RRR Gastrointestinal: soft, non-tender Neurological: moves all 4 limbs Psychiatric: normal affect, A&O x 3 Dx/Plan (1) Physical deconditioning Code(s): R53.81 - OTHER MALAISE Status: Acute Comment: will likely need SNU placement at discharge (2) NSTEMI (non-ST elevated myocardial infarction) Code(s): I21.4 - NON-ST ELEVATION (NSTEMI) MYOCARDIAL INFARCTION Status: Acute Comment: on aspirin and Plavix (3) DM2 (diabetes mellitus, type 2) Status: Chronic Comment: continue accuchecks and insulin sliding scale. (4) HTN (hypertension) Code(s): I10 - ESSENTIAL (PRIMARY) HYPERTENSION Status: Chronic Comment: controlled (5) Dyslipidemia Code(s): E78.5 - HYPERLIPIDEMIA, UNSPECIFIED Status: Chronic Comment: continue statin (6) Cardiogenic shock Code(s): R57.0 - CARDIOGENIC SHOCK Status: Resolved (7) Cholecystitis Code(s): K81.9 - CHOLECYSTITIS, UNSPECIFIED Status: Ruled-out - Plan * . Pt going for AICD tomorrow. Review of Systems - Review of Systems Constitutional: weakness Cardiovascular: negative: chest pain, palpitations, orthopnea, paroxysmal nocturnal dyspnea, edema, light headedness Gastrointestinal: negative: Nausea, Vomiting, Abdominal Pain, Diarrhea, Constipation, Melena, Hematochezia - Medications/Allergies Allergies/Adverse Reactions: Allergies Allergy/AdvReac Type Severity Reaction Status Date / Time Iodinated Contrast- Oral and Allergy Verified 12/05/17 11:20 IV Dye Medications: Current Medications Acetaminophen (Tylenol) 650 mg PO Q4H PRN PRN Reason: Headache/Fever/Mild Pain (1-3) Last Admin: 12/12/17 20:50 Dose: 650 mg Acetaminophen (Tylenol) 650 mg ID Q4H PRN PRN Reason: Headache/Fever/Mild Pain (1-3) Aspirin (Ecotrin) 81 mg PO DAILY [facility] Last Admin: 12/13/17 09:58 Dose: 81 mg Atorvastatin Calcium (Lipitor) 40 mg PO HS [facility] Last Admin: 12/12/17 20:50 Dose: 40 mg Benzonatate (Tessalon) 100 mg PO TIDPRN PRN PRN Reason: Cough Bisacodyl (Dulcolax) 10 mg PO DAILYPRN PRN PRN Reason: Constipation Carvedilol (Coreg) 3.125 mg PO BID-WM [facility] Last Admin: 12/13/17 17:19 Dose: 3.125 mg Clopidogrel Bisulfate (Plavix) 75 mg PO DAILY [facility] Last Admin: 12/13/17 09:58 Dose: 75 mg Dextrose/Water (Dextrose 50%) 25 gm SLOW IVP PRN PRN PRN Reason: Hypoglycemia Ezetimibe (Zetia) 10 mg PO DAILY [facility] Last Admin: 12/13/17 09:59 Dose: 10 mg Enoxaparin Sodium (Lovenox) 40 mg SC 0900 [facility] Last Admin: 12/13/17 09:58 Dose: 40 mg Fluoxetine HCl (Prozac) 20 mg PO DAILY [facility] Last Admin: 12/13/17 10:00 Dose: 20 mg Furosemide (Lasix) 40 mg SLOW IVP DAILY [facility] Last Admin: 12/13/17 10:00 Dose: 40 mg Glucagon (Glucagon) 1 mg IM PRN PRN PRN Reason: Hypoglycemia Guaifenesin (Organ-I Nr) 200 mg PO Q4H PRN PRN Reason: Cough Dextrose/Water (D5w) 1,000 mls @ 0 mls/hr IV .Q0M PRN PRN Reason: Hypoglycemia Insulin Human Lispro (Humalog) 0 units SC .MILD SLIDING SCALE PRN PRN Reason: Mild Correctional Scale Last Admin: 12/12/17 18:44 Dose: 2 unit Lidocaine (Lidoderm 5% Patch) 1 patch TD 2100 [facility] Last Admin: 12/12/17 20:50 Dose: 1 patch Lisinopril (Zestril) 5 mg PO 1800 [facility] Last Admin: 12/13/17 17:19 Dose: 5 mg Miscellaneous Medication (Lidocaine Patch Removal) 1 each TOP 0900 [facility] Last Admin: 12/13/17 10:01 Dose: Not Given Mometasone Furoate/Formoterol Fumar (Dulera 100 Mcg/5 Mcg Inhaler) 2 puff INH BID-RT [facility] Last Admin: 12/13/17 07:00 Dose: 2 puff Morphine Sulfate (Morphine) 2 mg SLOW IVP Q5MIN PRN PRN Reason: Chest Pain Nitroglycerin (Nitrostat) 0.4 mg SL Q5MIN PRN PRN Reason: Chest Pain Spironolactone (Aldactone) 50 mg PO QAM-WM [facility] Last Admin: 12/13/17 09:57 Dose: 50 mg Timolol Maleate (Timoptic 0.5% [facility]) 1 drop EA EYE DAILY [facility] Last Admin: 12/13/17 10:01 Dose: 1 drop
[2017-12-13] MEDS ORDERED: Sodium Chloride 0.9% 30 ML ONE (20:11)
[2017-12-13] MEDS: Atorvastatin Calcium 40 MG TAB PO SCH (20:45)
[2017-12-13] MEDS: Lidocaine 5% Patch TD SCH (20:45)
[2017-12-14] MEDS ORDERED: Mometasone/Formoterol 120 PUFF INHALER ONE (06:40)
[2017-12-14] MEDS: Mometasone/Formoterol 120 PUFF INHALER INH SCH ×2 (07:01→18:56)
--- NOTE | 2017-12-14 11:04 | PRG ---
DATE OF SERVICE: 12/14/2017 SUBJECTIVE: Ms. Pereira appears to be doing better this morning. She is coughing less. Her wor k of breathing has decreased. She is resting comfortably. She denies any heart racing, palpitations , dizziness, passing out. Review of systems is positive for chest pain with coughing and deep inspir ation secondary to compressions after her CPR arrest. Positive for weakness, shortness of breath, pe rsistent and painful cough, weakness. REVIEW OF SYSTEMS: Eight-point review of systems was conducted and is negative except that listed ab ove in the HPI. OBJECTIVE: VITAL SIGNS: Per nursing documentation during computer downtime. GENERAL: Ms. Pereira is alert and oriented. She is resting comfortably in bed in a semirecumben t position. She is at no acute distress. NECK: Supple, without jugular venous distention. HEART: Her heart rate is regularly irregular. Her PMI is nonpalpable. LUNGS: Her lungs exhibit bilateral crackles with limited inspiration. Respirations are at a regular rate. ABDOMEN: Obese, soft, and nontender, without palpable masses. Hepatojugular reflex is negative. EXTREMITIES: Warm and dry to touch without clubbing or cyanosis, but bilateral lower extremity edema is noted at least to the mid tibia. NEUROLOGIC: Grossly intact and nonfocal. Her gait was not assessed. IMPRESSION: 1. Severe nonoperable coronary artery disease. 2. Recent asystolic arrest status post CPR. 3. Diagnosed with a [id number] elevation myocardial infarction upon arrival of this hospitalizat ion with known severe coronary artery disease and recent cardiopulmonary resuscitation. 4. Severely reduced ejection fraction of 15%. 5. Congestive heart failure, NYHA functional class 3-4. RECOMMENDATIONS: I had a long discussion with Ms. Pereira about defibrillators, who qualifies an d what their purpose is. She is currently considering a DNR status and potentially palliative care. She is not in favor of invasive treatment strategies at this time. She informed me that she is not as in favor of a defibrillator as her is and she is unsure if she is wishing to proceed at th is time. Her coughing is better today, so her risk is lower, but the earliest an ICD could be placed is Sunday. I will attempt to contact her , Geovanny, to discuss defibrillator therapy with him as well. Finally, I will keep her n.p.o. Sunday for potential dual chamber ICD implant pend ing patient consent and also as long as she remains medically stable. She will be seen by Dr. Edison zamora Sunday. I encouraged her to have her be at bedside Sunday for when he come s by to round on the patient. All questions were answered.
[2017-12-14] MEDS ORDERED: CEFAZOLIN/Water 2 GM/20 ML SYRINGE SLOW IVP SCH (11:45)
[2017-12-14 13:01] LABS: INR-International Normal Ratio 1.1; PTT 27.6 SEC (22.9-36.1); Prothrombin Time 14.3 SEC (12.0-14.7)
[2017-12-14 13:58] LABS: Hemoglobin 11.2 g/dL (12.0-16.0); Mean Corpuscular HGB CONC 30.9 g/dL (32.0-36.0); Mean Corpuscular Hemoglobin 30.3 pg (27.0-31.0); Mean Platelet Volume 7.8 fL (7.4-10.4); Platelet Count 333 thou/uL (130-400); RBC Distribution Width 14.2 % (11.5-14.5); Red Blood Cell (RBC) Count 3.71 mill/uL (4.20-5.40)
--- NOTE | 2017-12-14 14:47 | PDOC.PN ---
- Subjective Encounter Start Date: 12/14/17 Encounter Start Time: 08:40 Pt seen for followup re: physical deconditioning. Denies chest pain, reports generalized weakness. No nausea or vomiting. - Objective Resuscitation Status: Resuscitation Status DNR:Do Not Resuscitate MAR Reviewed: Yes Vital Signs & Weight: Vital Signs (12 hours) Pulse Resp BP Pulse Ox 12/14/17 13:51 91 19 142/68 H 95 12/14/17 07:01 86 16 97 Weight Weight 260 lb 12.8 oz Most Recent Monitor Data Heart Rate from ECG 93 NIBP 96/40 NIBP BP-Mean 58 Respiration from ECG 24 SpO2 97 I&O: 12/13/17 12/14/17 12/15/17 06:59 06:59 06:59 Intake Total 1460 720 Output Total 950 1000 Balance 510 -280 Result Diagrams: 12/15/17 07:59 12/14/17 09:40 Additional Labs: Accuchecks 12/13/17 12/13/17 20:24 16:22 POC Glucose 147 H 164 H EKG Reviewed by me: Yes (Tele: NSR) Phys Exam - Physical Examination Constitutional: NAD HEENT: moist MMs Neck: supple Respiratory: clear to auscultation bilateral Cardiovascular: RRR Gastrointestinal: soft Neurological: moves all 4 limbs Psychiatric: normal affect Dx/Plan (1) Physical deconditioning Code(s): R53.81 - OTHER MALAISE Status: Acute Comment: likely for SNU (2) NSTEMI (non-ST elevated myocardial infarction) Code(s): I21.4 - NON-ST ELEVATION (NSTEMI) MYOCARDIAL INFARCTION Status: Acute Comment: continue aspirin and Plavix (3) DM2 (diabetes mellitus, type 2) Status: Chronic Comment: accuchecks improving (4) HTN (hypertension) Code(s): I10 - ESSENTIAL (PRIMARY) HYPERTENSION Status: Chronic Comment: controlled (5) Dyslipidemia Code(s): E78.5 - HYPERLIPIDEMIA, UNSPECIFIED Status: Chronic Comment: on statin (6) Cardiogenic shock Code(s): R57.0 - CARDIOGENIC SHOCK Status: Resolved (7) Cholecystitis Code(s): K81.9 - CHOLECYSTITIS, UNSPECIFIED Status: Ruled-out - Plan * . Discussed with patient re; goals of care. Pt would like to be DNR. Review of Systems - Review of Systems Constitutional: weakness. negative: fever, chills, sweats, malaise Cardiovascular: negative: chest pain, palpitations, orthopnea, paroxysmal nocturnal dyspnea, edema, light headedness - Medications/Allergies Allergies/Adverse Reactions: Allergies Allergy/AdvReac Type Severity Reaction Status Date / Time Iodinated Contrast- Oral and Allergy Verified 12/05/17 11:20 IV Dye Medications: Current Medications Acetaminophen (Tylenol) 650 mg PO Q4H PRN PRN Reason: Headache/Fever/Mild Pain (1-3) Last Admin: 12/12/17 20:50 Dose: 650 mg Acetaminophen (Tylenol) 650 mg CO Q4H PRN PRN Reason: Headache/Fever/Mild Pain (1-3) Aspirin (Ecotrin) 81 mg PO DAILY [facility] Last Admin: 12/13/17 09:58 Dose: 81 mg Atorvastatin Calcium (Lipitor) 40 mg PO HS [facility] Last Admin: 12/13/17 20:45 Dose: 40 mg Benzonatate (Tessalon) 100 mg PO TIDPRN PRN PRN Reason: Cough Bisacodyl (Dulcolax) 10 mg PO DAILYPRN PRN PRN Reason: Constipation Carvedilol (Coreg) 3.125 mg PO BID-WM [facility] Last Admin: 12/13/17 17:19 Dose: 3.125 mg Cefazolin Sodium (Ancef) 2 gm SLOW IVP WILLCALL [facility] Stop: 01/17/18 15:00 Clopidogrel Bisulfate (Plavix) 75 mg PO DAILY [facility] Last Admin: 12/13/17 09:58 Dose: 75 mg Dextrose/Water (Dextrose 50%) 25 gm SLOW IVP PRN PRN PRN Reason: Hypoglycemia Ezetimibe (Zetia) 10 mg PO DAILY [facility] Last Admin: 12/13/17 09:59 Dose: 10 mg Enoxaparin Sodium (Lovenox) 40 mg SC 0900 [facility] Last Admin: 12/13/17 09:58 Dose: 40 mg Fluoxetine HCl (Prozac) 20 mg PO DAILY [facility] Last Admin: 12/13/17 10:00 Dose: 20 mg Furosemide (Lasix) 40 mg SLOW IVP DAILY [facility] Last Admin: 12/13/17 10:00 Dose: 40 mg Glucagon (Glucagon) 1 mg IM PRN PRN PRN Reason: Hypoglycemia Guaifenesin (Organ-I Nr) 200 mg PO Q4H PRN PRN Reason: Cough Dextrose/Water (D5w) 1,000 mls @ 0 mls/hr IV .Q0M PRN PRN Reason: Hypoglycemia Insulin Human Lispro (Humalog) 0 units SC .MILD SLIDING SCALE PRN PRN Reason: Mild Correctional Scale Last Admin: 12/12/17 18:44 Dose: 2 unit Lidocaine (Lidoderm 5% Patch) 1 patch TD 2100 [facility] Last Admin: 12/13/17 20:45 Dose: 1 patch Lisinopril (Zestril) 5 mg PO 1800 [facility] Last Admin: 12/13/17 17:19 Dose: 5 mg Miscellaneous Medication (Lidocaine Patch Removal) 1 each TOP 0900 [facility] Last Admin: 12/13/17 10:01 Dose: Not Given Mometasone Furoate/Formoterol Fumar (Dulera 100 Mcg/5 Mcg Inhaler) 2 puff INH BID-RT [facility] Last Admin: 12/14/17 07:01 Dose: 2 puff Morphine Sulfate (Morphine) 2 mg SLOW IVP Q5MIN PRN PRN Reason: Chest Pain Nitroglycerin (Nitrostat) 0.4 mg SL Q5MIN PRN PRN Reason: Chest Pain Spironolactone (Aldactone) 50 mg PO QAM-WM [facility] Last Admin: 12/13/17 09:57 Dose: 50 mg Timolol Maleate (Timoptic 0.5% [facility]) 1 drop EA EYE DAILY [facility] Last Admin: 12/13/17 10:01 Dose: 1 drop
[2017-12-14 15:20] LABS: Anion Gap 13 mmol/L (10-20); BUN (Urea Nitrogen) 11 mg/dL (9.8-20.1); Calc. Creatinine Clearance 140 mL/min (70-130); Carbon Dioxide 31 mmol/L (23-31); Chloride 96 mmol/L (98-107); Estimated GFR-MDRD Greater than 90; Potassium 3.9 mmol/L (3.5-5.1); Sodium 136 mmol/L (136-145)
[2017-12-14 15:21] LABS: Glucose 179 mg/dL (83-110)
[2017-12-14] MEDS: Aspirin 81 mg Enteric Coated Tablet PO SCH (17:06)
[2017-12-14] MEDS: Spironolactone 25 MG TAB PO SCH (17:06)
[2017-12-14] MEDS: Carvedilol 3.125 MG TAB PO SCH ×2 (17:06→17:42)
[2017-12-14] MEDS: Enoxaparin Sodium 40 MG/0.4 ML SYRINGE SC SCH (17:07)
[2017-12-14] MEDS: FLUoxetine HCl 20 MG CAP PO SCH (17:07)
[2017-12-14] MEDS: Lidocaine Patch Removal 1 EACH TOP SCH (17:07)
[2017-12-14] MEDS: Furosemide 40 MG/4 ML VIAL SLOW IVP SCH (17:07)
[2017-12-14] MEDS: Ezetimibe 10 MG TAB PO SCH (17:07)
[2017-12-14] MEDS: Clopidogrel Bisulfate 75 MG TAB PO SCH (17:07)
[2017-12-14] MEDS: Timolol 0.5% Ophth Soln 5 ml Bottle EA EYE SCH (17:07)
[2017-12-14] MEDS: Lisinopril 5 MG TAB PO SCH (17:42)
[2017-12-14 18:03] LABS: #Eosinphils 0.2 thou/uL (0.0-0.7); #Lymphocytes 1.3 thou/uL (1.20-3.40); #Monocytes 0.9 thou/uL (0.11-0.59); #Neutrophils 7.6 thou/uL (1.40-6.50); %Basophils 0.1 % (0.0-1.0); %Eosinophils 2.1 % (0.0-10.0); %Lymphocytes 13.2 % (21.0-51.0); %Monocytes 8.9 % (0.0-10.0); %Neutrophils 75.8 % (42.0-75.0); Hemoglobin 10.6 g/dL (12.0-16.0); Mean Corpuscular HGB CONC 31.6 g/dL (32.0-36.0); Mean Corpuscular Hemoglobin 30.8 pg (27.0-31.0); Mean Corpuscular Volume 97.3 fL (78.0-98.0); Mean Platelet Volume 8.2 fL (7.4-10.4); Platelet Count 270 thou/uL (130-400); RBC Distribution Width 14.2 % (11.5-14.5); Red Blood Cell (RBC) Count 3.43 mill/uL (4.20-5.40)
[2017-12-14] MEDS: Atorvastatin Calcium 40 MG TAB PO SCH (20:31)
[2017-12-14] MEDS: Lidocaine 5% Patch TD SCH (20:31)
[2017-12-15] MEDS: Mometasone/Formoterol 120 PUFF INHALER INH SCH ×2 (06:50→19:48)
[2017-12-15 08:39] LABS: #Eosinphils 0.1 thou/uL (0.0-0.7); #Lymphocytes 1.4 thou/uL (1.20-3.40); #Monocytes 0.9 thou/uL (0.11-0.59); #Neutrophils 7.7 thou/uL (1.40-6.50); %Basophils 0.2 % (0.0-1.0); %Eosinophils 1.3 % (0.0-10.0); %Lymphocytes 13.7 % (21.0-51.0); %Monocytes 8.6 % (0.0-10.0); %Neutrophils 76.2 % (42.0-75.0); Hemoglobin 11.5 g/dL (12.0-16.0); Mean Corpuscular HGB CONC 30.8 g/dL (32.0-36.0); Mean Corpuscular Hemoglobin 29.9 pg (27.0-31.0); Mean Corpuscular Volume 97.1 fL (78.0-98.0); Mean Platelet Volume 7.3 fL (7.4-10.4); Platelet Count 311 thou/uL (130-400); RBC Distribution Width 14.2 % (11.5-14.5); Red Blood Cell (RBC) Count 3.84 mill/uL (4.20-5.40); White Blood Cell (WBC) Count 10.1 thou/uL (4.8-10.8)
[2017-12-15] MEDS: Carvedilol 3.125 MG TAB PO SCH ×2 (08:50→17:40)
[2017-12-15] MEDS: Spironolactone 25 MG TAB PO SCH (08:51)
[2017-12-15] MEDS: FLUoxetine HCl 20 MG CAP PO SCH (08:52)
[2017-12-15] MEDS: Ezetimibe 10 MG TAB PO SCH (08:52)
[2017-12-15] MEDS: Aspirin 81 mg Enteric Coated Tablet PO SCH (08:52)
[2017-12-15] MEDS: Enoxaparin Sodium 40 MG/0.4 ML SYRINGE SC SCH (08:52)
[2017-12-15] MEDS: Clopidogrel Bisulfate 75 MG TAB PO SCH (08:52)
[2017-12-15] MEDS: Timolol 0.5% Ophth Soln 5 ml Bottle EA EYE SCH (08:53)
[2017-12-15] MEDS: Lidocaine Patch Removal 1 EACH TOP SCH (08:53)
[2017-12-15] MEDS: Furosemide 40 MG/4 ML VIAL SLOW IVP SCH (08:53)
--- NOTE | 2017-12-15 12:11 | PDOC.CTH ---
<JessicaRoseline liebermanen Zahraa - Last Filed: 12/15/17 12:09> Cardiology Progress Note - Subjective Complaint of weakness and feeling tired. No CP, SOB - Objective Vital Signs Temp Pulse Resp BP Pulse Ox 12/15/17 11:05 99.3 F 82 15 115/55 L 93 L 12/15/17 07:15 98.6 F 81 15 118/56 L 96 12/15/17 06:50 84 16 95 12/15/17 03:25 98.2 F 81 16 132/61 93 L Weight 255 lb 4.8 oz 12/14/17 12/15/17 12/16/17 06:59 06:59 06:59 Intake Total 720 680 Output Total 1000 Balance -280 680 - Physical Examination General/Neuro: alert & oriented x3 Heart: RRR Abdomen: NT/ND Extremities: other: (No edema) - Labs Result Diagrams: 12/15/17 07:59 12/14/17 09:40 Troponin/CKMB CK-MB (CK-2) 27.0 ng/mL (0-6.6) H* 12/05/17 08:08 Troponin I 39.458 ng/mL (< 0.028) H* 12/05/17 14:35 - Assessment/Plan 1. Asystole s/p CPR and resuscitation 2. Severe CAD 3. Severe ICMO 4. DNR Patient tells me she is now DNR and does not want ICD. She is trying to relay this information to her family and make them comfortable with it. No changes to meds. Continue PT. May consider palliative care consult for family. <Joey Kevin - Last Filed: 12/15/17 19:55> Cardiology Progress Note - Objective Vital Signs Temp Pulse Pulse Pulse Resp BP BP 12/15/17 19:48 86 20 12/15/17 15:18 90 91 110/73 112/58 L 12/15/17 15:05 98.8 F 91 14 12/15/17 11:05 99.3 F 82 15 BP Pulse Ox Pulse Ox Pulse Ox 12/15/17 19:48 96 12/15/17 15:18 91 L 93 L 12/15/17 15:05 112/58 L 92 L 12/15/17 11:05 115/55 L 93 L Weight 255 lb 4.8 oz 12/14/17 12/15/17 12/16/17 06:59 06:59 06:59 Intake Total 720 680 600 Output Total 1000 Balance -280 680 600 - Labs Result Diagrams: 12/15/17 07:59 12/14/17 09:40 Troponin/CKMB CK-MB (CK-2) 27.0 ng/mL (0-6.6) H* 12/05/17 08:08 Troponin I 39.458 ng/mL (< 0.028) H* 12/05/17 14:35 - Assessment/Plan Pt seen and examined. Agree with the above assessment
--- NOTE | 2017-12-15 16:44 | PDOC.PN ---
- Subjective Encounter Start Date: 12/15/17 Encounter Start Time: 08:30 Pt seen for followup re: physical deconditioning. Denies chest pain, shortness of breath, fevers or chills. - Objective Resuscitation Status: Resuscitation Status DNR:Do Not Resuscitate MAR Reviewed: Yes Vital Signs & Weight: Vital Signs (12 hours) Temp Pulse Pulse Pulse Resp BP BP 12/15/17 15:18 90 91 110/73 112/58 L 12/15/17 15:05 98.8 F 91 14 12/15/17 11:05 99.3 F 82 15 12/15/17 07:15 98.6 F 81 15 12/15/17 06:50 84 16 BP Pulse Ox Pulse Ox Pulse Ox 12/15/17 15:18 91 L 93 L 12/15/17 15:05 112/58 L 92 L 12/15/17 11:05 115/55 L 93 L 12/15/17 07:15 118/56 L 96 12/15/17 06:50 95 Weight Weight 255 lb 4.8 oz Most Recent Monitor Data Heart Rate from ECG 93 NIBP 96/40 NIBP BP-Mean 58 Respiration from ECG 24 SpO2 97 I&O: 12/14/17 12/15/17 12/16/17 06:59 06:59 06:59 Intake Total 720 680 Output Total 1000 Balance -280 680 Result Diagrams: 12/16/17 04:56 12/14/17 09:40 Additional Labs: Accuchecks 12/15/17 12/15/17 12/14/17 11:17 06:08 20:03 POC Glucose 207 H 107 171 H 12/14/17 16:49 POC Glucose 163 H EKG Reviewed by me: Yes (Tele: NSR) Phys Exam - Physical Examination Constitutional: NAD HEENT: moist MMs Neck: supple Respiratory: clear to auscultation bilateral Cardiovascular: RRR Gastrointestinal: soft Neurological: moves all 4 limbs Psychiatric: normal affect Dx/Plan (1) Physical deconditioning Code(s): R53.81 - OTHER MALAISE Status: Acute Comment: pt deciding re: AICD , ok to go to SNU once decided (2) NSTEMI (non-ST elevated myocardial infarction) Code(s): I21.4 - NON-ST ELEVATION (NSTEMI) MYOCARDIAL INFARCTION Status: Acute Comment: aspirin and Plavix (3) DM2 (diabetes mellitus, type 2) Status: Chronic Comment: accuchecks improved (4) HTN (hypertension) Code(s): I10 - ESSENTIAL (PRIMARY) HYPERTENSION Status: Chronic Comment: controlled (5) Dyslipidemia Code(s): E78.5 - HYPERLIPIDEMIA, UNSPECIFIED Status: Chronic Comment: on statin (6) Cardiogenic shock Code(s): R57.0 - CARDIOGENIC SHOCK Status: Resolved (7) Cholecystitis Code(s): K81.9 - CHOLECYSTITIS, UNSPECIFIED Status: Ruled-out - Plan * . Review of Systems - Review of Systems Constitutional: weakness. negative: fever, chills, sweats, malaise Respiratory: negative: Cough, Shortness of Breath, SOB with Excertion, Pleuritic Pain, Wheezing - Medications/Allergies Allergies/Adverse Reactions: Allergies Allergy/AdvReac Type Severity Reaction Status Date / Time Iodinated Contrast- Oral and Allergy Verified 12/05/17 11:20 IV Dye Medications: Current Medications Acetaminophen (Tylenol) 650 mg PO Q4H PRN PRN Reason: Headache/Fever/Mild Pain (1-3) Last Admin: 12/12/17 20:50 Dose: 650 mg Acetaminophen (Tylenol) 650 mg SC Q4H PRN PRN Reason: Headache/Fever/Mild Pain (1-3) Aspirin (Ecotrin) 81 mg PO DAILY [facility] Last Admin: 12/15/17 08:52 Dose: 81 mg Atorvastatin Calcium (Lipitor) 40 mg PO HS [facility] Last Admin: 12/14/17 20:31 Dose: 40 mg Benzonatate (Tessalon) 100 mg PO TIDPRN PRN PRN Reason: Cough Bisacodyl (Dulcolax) 10 mg PO DAILYPRN PRN PRN Reason: Constipation Carvedilol (Coreg) 3.125 mg PO BID-[facility] Last Admin: 12/15/17 08:50 Dose: 3.125 mg Cefazolin Sodium (Ancef) 2 gm SLOW IVP WILLCALL [facility] Stop: 01/17/18 15:00 Clopidogrel Bisulfate (Plavix) 75 mg PO DAILY [facility] Last Admin: 12/15/17 08:52 Dose: 75 mg Dextrose/Water (Dextrose 50%) 25 gm SLOW IVP PRN PRN PRN Reason: Hypoglycemia Ezetimibe (Zetia) 10 mg PO DAILY [facility] Last Admin: 12/15/17 08:52 Dose: 10 mg Enoxaparin Sodium (Lovenox) 40 mg SC 0900 [facility] Last Admin: 12/15/17 08:52 Dose: 40 mg Fluoxetine HCl (Prozac) 20 mg PO DAILY [facility] Last Admin: 12/15/17 08:52 Dose: 20 mg Furosemide (Lasix) 40 mg SLOW IVP DAILY [facility] Last Admin: 12/15/17 08:53 Dose: 40 mg Glucagon (Glucagon) 1 mg IM PRN PRN PRN Reason: Hypoglycemia Guaifenesin (Organ-I Nr) 200 mg PO Q4H PRN PRN Reason: Cough Dextrose/Water (D5w) 1,000 mls @ 0 mls/hr IV .Q0M PRN PRN Reason: Hypoglycemia Insulin Human Lispro (Humalog) 0 units SC .MILD SLIDING SCALE PRN PRN Reason: Mild Correctional Scale Last Admin: 12/12/17 18:44 Dose: 2 unit Lidocaine (Lidoderm 5% Patch) 1 patch TD 2100 [facility] Last Admin: 12/14/17 20:31 Dose: 1 patch Lisinopril (Zestril) 5 mg PO 1800 [facility] Last Admin: 12/14/17 17:42 Dose: 5 mg Miscellaneous Medication (Lidocaine Patch Removal) 1 each TOP 0900 [facility] Last Admin: 12/15/17 08:53 Dose: 1 each Mometasone Furoate/Formoterol Fumar (Dulera 100 Mcg/5 Mcg Inhaler) 2 puff INH BID-RT [facility] Last Admin: 12/15/17 06:50 Dose: 2 puff Nitroglycerin (Nitrostat) 0.4 mg SL Q5MIN PRN PRN Reason: Chest Pain Spironolactone (Aldactone) 50 mg PO QAM-WM [facility] Last Admin: 12/15/17 08:51 Dose: 50 mg Timolol Maleate (Timoptic 0.5% [facility]) 1 drop EA EYE DAILY [facility] Last Admin: 12/15/17 08:53 Dose: 1 drop
[2017-12-15] MEDS: Lisinopril 5 MG TAB PO SCH (17:40)
[2017-12-15] MEDS: Atorvastatin Calcium 40 MG TAB PO SCH (21:14)
[2017-12-15] MEDS: Lidocaine 5% Patch TD SCH (21:14)
[2017-12-16 05:34] LABS: #Eosinphils 0.2 thou/uL (0.0-0.7); #Lymphocytes 1.4 thou/uL (1.20-3.40); #Monocytes 0.9 thou/uL (0.11-0.59); #Neutrophils 7.3 thou/uL (1.40-6.50); %Basophils 0.5 % (0.0-1.0); %Monocytes 9.3 % (0.0-10.0); %Neutrophils 74.3 % (42.0-75.0); Hemoglobin 10.9 g/dL (12.0-16.0); Mean Corpuscular HGB CONC 31.8 g/dL (32.0-36.0); Mean Corpuscular Hemoglobin 30.6 pg (27.0-31.0); Mean Platelet Volume 7.6 fL (7.4-10.4); Platelet Count 300 thou/uL (130-400); RBC Distribution Width 14.2 % (11.5-14.5); Red Blood Cell (RBC) Count 3.57 mill/uL (4.20-5.40); White Blood Cell (WBC) Count 9.8 thou/uL (4.8-10.8)
[2017-12-16] MEDS: Mometasone/Formoterol 120 PUFF INHALER INH SCH ×2 (07:11→17:24)
[2017-12-16] MEDS: Spironolactone 25 MG TAB PO SCH (08:23)
[2017-12-16] MEDS: Enoxaparin Sodium 40 MG/0.4 ML SYRINGE SC SCH (08:24)
[2017-12-16] MEDS: Carvedilol 3.125 MG TAB PO SCH ×2 (08:24→17:07)
[2017-12-16] MEDS: FLUoxetine HCl 20 MG CAP PO SCH (08:24)
[2017-12-16] MEDS: Aspirin 81 mg Enteric Coated Tablet PO SCH (08:24)
[2017-12-16] MEDS: Ezetimibe 10 MG TAB PO SCH (08:24)
[2017-12-16] MEDS: Clopidogrel Bisulfate 75 MG TAB PO SCH (08:24)
[2017-12-16] MEDS: Furosemide 40 MG/4 ML VIAL SLOW IVP SCH (08:25)
[2017-12-16] MEDS: Timolol 0.5% Ophth Soln 5 ml Bottle EA EYE SCH (08:25)
[2017-12-16] MEDS: Lidocaine Patch Removal 1 EACH TOP SCH (08:26)
--- NOTE | 2017-12-16 09:51 | PDOC.CTH ---
Cardiology Progress Note - Subjective Patient with c/o SOB, but no different than usual. Says she is choosing to be a DNR and going home today. - Objective Vital Signs Temp Pulse Resp BP Pulse Ox 12/16/17 07:11 83 18 93 L 12/16/17 07:05 98.2 F 85 16 136/72 97 12/16/17 03:45 98.1 F 78 20 123/66 95 Weight 255 lb 12.8 oz 12/15/17 12/16/17 12/17/17 06:59 06:59 06:59 Intake Total 680 900 Balance 680 900 - Physical Examination General/Neuro: alert & oriented x3 Neck: no JVD present Lungs: CTA Heart: RRR Abdomen: NT/ND - Telemetry Telemetry Rhythm: SR; 4 beat NSVT - Labs Result Diagrams: 12/16/17 04:56 12/14/17 09:40 Troponin/CKMB CK-MB (CK-2) 27.0 ng/mL (0-6.6) H* 12/05/17 08:08 Troponin I 39.458 ng/mL (< 0.028) H* 12/05/17 14:35 - Assessment/Plan 1. Asystole s/p CPR and resuscitation 2. Severe CAD 3. Severe ICMO 4. DNR 5. NSVT Patient has chosen to be DNR. Declines ICD in good mental status. Chooses comfort measures for now at home. Ok for discharge.
[2017-12-16] MEDS: Lisinopril 5 MG TAB PO SCH (17:07)
[2017-12-16 17:40] VITALS: BP 126/61; TEMP 98.5
--- NOTE | 2017-12-16 22:23 | DIS ---
DATE OF ADMISSION: 12/05/2017 DATE OF DISCHARGE: 12/16/2017 PRIMARY CARE PROVIDER: Kameron Franklin M.D. ADMITTING DIAGNOSES: DISCHARGE DIAGNOSES: 1. Non-ST elevation myocardial infarction. 2. Acute hypercapnic respiratory failure. 3. Physical deconditioning. 4. Chronic systolic congestive heart failure. 5. Cholecystitis, ruled out. 6. Cardiogenic shock. 7. Cardiac arrest. CONDITION OF PATIENT ON THE DAY OF DISCHARGE: Stable. I assessed Ms. Pereira on the day of discharge. She denies any chest pain or shortness of breath. She reports generalized weakness. Vital signs are stable. S1 and S2 are heard, regular. Lungs are clear to auscultation bilaterally. CONSULTATIONS DURING THIS HOSPITALIZATION: Pulmonology, Dr. Valencia; Cardiology, Dr. Gray; General Surgery, Dr. Miller and Electrophysiology, Dr. Jeffery. DISCHARGE MEDICATIONS: Alpha lipoic acid 300 mg daily, Biotin 2500 mcg daily, bumetanide 2 mg daily, calcium carbonate/vitamin D2 one tablet 2 times a day, cinnamon bar 500 mg daily, Plavix 75 mg daily, cranberry plus vitamin C soft gel 1 capsule daily, vitamin B12 500 mcg daily, fish oil 1 capsule daily, Zetia 10 mg daily, fluoxetine 20 mg daily, Centrum Silver tablet 1 tablet daily, timolol one drop to each eye daily, Coenzyme Q10 30 mg daily, nitroglycerin p.r.n., aspirin 81 mg daily, Lipitor 40 mg at bedtime, Tessalon 100 mg 3 times a day as needed, Dulcolax 10 mg daily as needed, Coreg 3.125 mg 2 times a day, lidocaine 5% patch daily, lisinopril 5 mg daily, Dulera 100/5 mcg 2 puffs 2 times a day, spironolactone 50 mg daily. HOSPITAL COURSE: Ms. Pereira is a pleasant 77-year-old lady who was admitted to [facility] on 12/05/2017 for non-ST elevation myocardial infarction, acute hypercapnic respiratory failure, leukocytosis and abnormal liver function tests. She was in cardiogenic shock at the time of admission. She was also intubated in the emergency room prior to admission for acute hypercapnic respiratory failure. She was started on empiric antibiotics for suspected infection. She was seen by General Surgery Service for suspected cholecystitis. It was felt that this was not true cholecystitis and that the fluid accumulation around the gallbladder was secondary to congestive heart failure. She was also seen by Cardiology and Pulmonology Services. She was managed medically for non-ST elevation myocardial infarction. She was eventually weaned off of pressors and transferred to telemetry floor. Antibiotics were also discontinued. She was in significant amount of physical deconditioning. She was seen by Therapy Services. She was also seen by Electrophysiology Service because of low EF. A 2D echocardiogram on 12/06/2017 showed left ventricular ejection fraction of 15%-20 % with akinetic apex. Pulmonary artery systolic pressure was elevated at 50 mmHg. After discussion with Electrophysiology Service as well as with her family members, patient opted not to have an AICD placed. She wished to be DNR. She was also seen by palliative care team during this hospitalization. On 12/16/2017, she is being discharged to [facility] in [place], [place]. LABORATORY DATA: On the day of discharge, she has white count of 9,800, hemoglobin 10.9, platelet count 300,000. On 12/14/2017, she had sodium 136, potassium 3.9 and creatinine 0.62. Her BNP on 12/15/2017 was 2543. Many thanks for allowing me to participate in your patient's care. Please feel free to contact me with any questions or concerns. DISCHARGE DESTINATION: [facility]. TOTAL AMOUNT OF TIME SPENT COORDINATING THIS DISCHARGE: 31 minutes. CALEB
== END 2017-12-16 17:53 | DRG 280 ==
LOC: ERS 07:47 → CCU 09:44 → 2NO 12-07 15:23
PROVIDERS: ADMIT Internal Medicine; ATTEND Internal Medicine
PROC: 3E033XZ Introduction of Vasopressor into Peripheral Vein, Percutaneous Approach (ICD-10-PCS; principal; 2017-12-05)
PROC: 0BH17EZ Insertion of Endotracheal Airway into Trachea, Via Natural or Artificial Opening (ICD-10-PCS; 2017-12-05)
PROC: 5A1935Z Respiratory Ventilation, Less than 24 Consecutive Hours (ICD-10-PCS; 2017-12-05)
DX: I21.4 Non-ST elevation (NSTEMI) myocardial infarction (principal); J96.02 Acute respiratory failure with hypercapnia; R57.0 Cardiogenic shock; I50.23 Acute on chronic systolic (congestive) heart failure; G61.0 Guillain-Barre syndrome; Z68.41 Body mass index [BMI] 40.0-44.9, adult; J81.1 Chronic pulmonary edema; I25.10 Atherosclerotic heart disease of native coronary artery without angina pectoris; D64.9 Anemia, unspecified; M19.90 Unspecified osteoarthritis, unspecified site; E11.9 Type 2 diabetes mellitus without complications; E78.5 Hyperlipidemia, unspecified; M54.16 Radiculopathy, lumbar region; E66.01 Morbid (severe) obesity due to excess calories; D72.829 Elevated white blood cell count, unspecified; R79.89 Other specified abnormal findings of blood chemistry; R53.81 Other malaise; Z66 Do not resuscitate; I25.5 Ischemic cardiomyopathy; I11.0 Hypertensive heart disease with heart failure; I44.7 Left bundle-branch block, unspecified; Z79.82 Long term (current) use of aspirin; Z79.02 Long term (current) use of antithrombotics/antiplatelets; Z80.8 Family history of malignant neoplasm of other organs or systems
CPT/HCPCS: 31500; 36415; 36416; 36556; 51702; 71045; 76705; 80048; 80053; 80061; 81003; 82553; 82805; 83605; 83690; 83880; 84443; 84484; 85025; 85379; 85610; 85730; 87040; 87086; 93005; 93010; 93306; 94002; 94664; 96365; 96366; 96368; 96372; 96375; 96376; G8978-GP-CN; G8979-GP-CL; G8981-GP-CK; G8982-GP-CI; J0171; J1040; J1650; J1940; J2250; J2543; J3010; J3370; J3480; J7050; J7070; S0020